=== PATIENT | male | born 1955 | race Hispanic/Latino ===

== ENCOUNTER 2019-05-05 19:56 | Inpatient (IN) | payer OTHER ==
[2019-05-05] MEDS ORDERED: SODIUM CHLORIDE 0.9% 250ML 250 ML IV ONE (20:36)
--- NOTE | 2019-05-05 20:41 | XRay Report ---
CHEST 1 VIEW 8:16 PM INDICATION / CLINICAL INFORMATION: Chest Pain. Difficulty breathing. COMPARISON: None available. FINDINGS: SUPPORT DEVICES: None. HEART / MEDIASTINUM: The heart size is normal. There is mild prominence of the central pulmonary vess els. LUNGS / PLEURA: There is moderate patchy interstitial disease throughout both lungs, more prominent i n the mid to lower lung zones and greater on the right. There is a minimal right pleural effusion. Th e lungs appear mildly hyperinflated. No pneumothorax. ADDITIONAL FINDINGS: No significant additional findings. IMPRESSION: Mild congestive heart failure superimposed on COPD. Signer Name: Braeden Shabazz MD Signed: 05/05/2019 8:36 PM Workstation Name: [id number]
[2019-05-05] MEDS ORDERED: ALBUTEROL 2.5 MG/3 ML NEBU IH ONE (20:42)
[2019-05-05] MEDS ORDERED: methylPREDNISolone Sod Succinate 125 MG/2 ML INJ IV ONE (20:42)
[2019-05-05] MEDS ORDERED: IPRATROPIUM 0.02% NEBU 2.5 ML IH ONE (20:42)
--- NOTE | 2019-05-05 20:44 | Emergency Department Report ---
ED General Adult HPI - General Chief complaint: Dyspnea/Respdistress Stated complaint: ALEXIS Time Seen by Provider: 05/05/19 20:25 Source: patient, EMS ( EMS documentation not available at time of chart dictation ), RN notes reviewed Mode of arrival: Stretcher Limitations: Physical Limitation - History of Present Illness Initial comments: This is a 64-year-old gentleman. This patient is not known to this provider previously. He typically follows at the [facility]. He has a history of hypertension, A. fib, on permanent anticoagulation, Coumadin, high cholesterol, arterial disease, history of aortic bypass, and iliac occlusion The patient presents to the ER today with a complaint of pain with shortness of breath. The symptoms started yesterday. They are constant. It was sort physical exertion. They decrease with rest. He endorses compliance with his Coumadin therapy. He checks his INR at home; recent INR is 4 as of last night. He held his Coumadin dose last night. He denies history of DVT that he is aware of, and he denies recent travel, surgery, immobilization, or flights. He has no physical pain at this time. His legs have chronic lower extremity swelling. He thinks that they're at their baseline. He was seen at an urgent care center recently, presumptively diagnosed with a sinus infection, prescribed oral outpatient antibiotics, although he states these are not improving. He thinks he is taking amoxicillin. -: Gradual, hour(s) (24-36) Consistency: constant Improves with: rest Worsens with: movement - Related Data Home Medications Medication Instructions Recorded Confirmed Last Taken Amoxicillin [Trimox CAP] 500 mg PO Q8H 05/05/19 05/05/19 Unknown Atenolol [Tenormin] 25 mg PO DAILY 05/05/19 05/05/19 Unknown AtorvaSTATin [Lipitor] 10 mg PO QHS 05/05/19 05/05/19 Unknown Benzonatate [Tessalon Perles] 100 mg PO Q8HR 05/05/19 05/05/19 Unknown Fluticasone [Flonase] 1 spray NS QDAY 05/05/19 05/05/19 Unknown Warfarin Sodium [Coumadin] 5 mg PO DAILY 05/05/19 05/05/19 Unknown hydrALAZINE [Apresoline TAB] 10 mg PO QHS 05/05/19 05/05/19 Unknown Allergies Allergy/AdvReac Type Severity Reaction Status Date / Time aspirin AdvReac Unknown Verified 05/05/19 20:10 ED Review of Systems ROS: Stated complaint: ALEXIS Other details as noted in HPI Constitutional: malaise ENT: congestion Respiratory: shortness of breath Cardiovascular: edema. denies: chest pain Gastrointestinal: denies: abdominal pain, nausea, vomiting, diarrhea, constipation, hematemesis, melena Genitourinary: denies: dysuria Musculoskeletal: denies: myalgia Skin: denies: lesions Neurological: weakness Psychiatric: anxiety ED Past Medical Hx - Past Medical History Previous Medical History?: Yes Hx Hypertension: Yes Additional medical history: AFIB; antiphospholipid syndrome; high cholesterol - Surgical History Past Surgical History?: Yes Additional Surgical History: aortic bypass; L. iliac arterial bypass; R. and L. femoral arterial bypass - Social History Smoking Status: Unknown if ever smoked - Medications Home Medications: Home Medications Medication Instructions Recorded Confirmed Last Taken Type Amoxicillin [Trimox CAP] 500 mg PO Q8H 05/05/19 05/05/19 Unknown History Atenolol [Tenormin] 25 mg PO DAILY 05/05/19 05/05/19 Unknown History AtorvaSTATin [Lipitor] 10 mg PO QHS 05/05/19 05/05/19 Unknown History Benzonatate [Tessalon Perles] 100 mg PO Q8HR 05/05/19 05/05/19 Unknown History Fluticasone [Flonase] 1 spray NS QDAY 05/05/19 05/05/19 Unknown History Warfarin Sodium [Coumadin] 5 mg PO DAILY 05/05/19 05/05/19 Unknown History hydrALAZINE [Apresoline TAB] 10 mg PO QHS 05/05/19 05/05/19 Unknown History ED Physical Exam - General Limitations: Physical Limitation General appearance: alert, anxious, in distress - Head Head exam: Present: atraumatic, normocephalic - Eye Eye exam: Present: normal appearance, EOMI. Absent: nystagmus - ENT ENT exam: Present: normal exam, normal orophraynx, mucous membranes moist, normal external ear exam - Neck Neck exam: Present: normal inspection, full ROM. Absent: tenderness, meningismus - Respiratory Respiratory exam: Present: respiratory distress, decreased breath sounds. Absent: wheezes, rales, rhonchi, stridor - Cardiovascular Cardiovascular Exam: Present: normal rhythm, tachycardia, normal heart sounds. Absent: systolic murmur, diastolic murmur, rubs, gallop - GI/Abdominal GI/Abdominal exam: Present: soft. Absent: distended, tenderness, guarding, rebound, rigid, pulsatile mass - Rectal Rectal exam: Present: deferred - Extremities Exam Extremities exam: Present: normal inspection, full ROM, pedal edema, other (2+ pulses noted in the bilateral upper, lower extremities. There is no long bone tenderness. Musculoskeletal compartments are soft. The pelvis is stable.). Absent: calf tenderness - Back Exam Back exam: Present: normal inspection, full ROM. Absent: tenderness, CVA tenderness (R), CVA tenderness (L), paraspinal tenderness, vertebral tenderness - Neurological Exam Neurological exam: Present: alert, oriented X3, other (there is no facial droop. The tongue is midline. Extraocular movements are intact bilaterally. Patient speaking in full complete sentences. Shoulder shrug is intact bilaterally. Hearing is grossly intact bilaterally. Visual acuity intact to finger counting and color perception at a close distance. 5/5 strength 4 extremities. Sensation intact to light touch in 4 extremities.). Absent: motor sensory deficit - Psychiatric Psychiatric exam: Present: anxious - Skin Skin exam: Present: warm, dry, intact, normal color. Absent: rash ED Course Vital Signs 05/05/19 05/05/19 05/05/19 20:02 20:52 20:54 Temperature 98.1 F Pulse Rate 81 77 Pulse Rate [ 75 Anterior] Respiratory 18 18 Rate Respiratory 18 Rate [Anterior] Blood Pressure 191/81 Blood Pressure 188/93 [Right] O2 Sat by Pulse 96 100 Oximetry 05/05/19 21:00 Temperature 98.1 F Pulse Rate 92 H Pulse Rate [ Anterior] Respiratory 20 Rate Respiratory Rate [Anterior] Blood Pressure Blood Pressure 178/94 [Right] O2 Sat by Pulse 94 Oximetry ED Medical Decision Making - Lab Data Result diagrams: 05/05/19 20:17 05/05/19 20:17 Vital Signs 05/05/19 05/05/19 05/05/19 20:02 20:52 20:54 Temperature 98.1 F Pulse Rate 81 77 Pulse Rate [ 75 Anterior] Respiratory 18 18 Rate Respiratory 18 Rate [Anterior] Blood Pressure 191/81 Blood Pressure 188/93 [Right] O2 Sat by Pulse 96 100 Oximetry 05/05/19 21:00 Temperature 98.1 F Pulse Rate 92 H Pulse Rate [ Anterior] Respiratory 20 Rate Respiratory Rate [Anterior] Blood Pressure Blood Pressure 178/94 [Right] O2 Sat by Pulse 94 Oximetry Lab Results 05/05/19 05/05/19 05/05/19 Range/Units 20:17 20:17 21:15 WBC 13.3 H (4.5-11.0) K/mm3 RBC 3.80 (3.65-5.03) M/mm3 Hgb 11.0 L (11.8-15.2) gm/dl Hct 34.0 L (35.5-45.6) % MCV 90 (84-94) fl MCH 29 (28-32) pg MCHC 32 (32-34) % RDW 16.2 H (13.2-15.2) % Plt Count 118 L (140-440) K/mm3 Lymph % (Auto) 11.4 L (13.4-35.0) % [place] % (Auto) 7.5 H (0.0-7.3) % Eos % (Auto) 0.3 (0.0-4.3) % Baso % (Auto) 0.6 (0.0-1.8) % Lymph # 1.5 (1.2-5.4) K/mm3 [place] # 1.0 H (0.0-0.8) K/mm3 Eos # 0.0 (0.0-0.4) K/mm3 Baso # 0.1 (0.0-0.1) K/mm3 Seg Neutrophils % 80.2 H (40.0-70.0) % Seg Neutrophils # 10.7 H (1.8-7.7) K/mm3 PT 29.2 H (12.2-14.9) Sec. INR 2.82 H (0.87-1.13) Sodium 140 (137-145) mmol/L Potassium 3.3 L (3.6-5.0) mmol/L Chloride 109.0 H (98-107) mmol/L Carbon Dioxide 19 L (22-30) mmol/L Anion Gap 15 mmol/L BUN 24 H (9-20) mg/dL Creatinine 0.9 (0.8-1.5) mg/dL Estimated GFR > 60 ml/min BUN/Creatinine Ratio 27 % Glucose 89 (75-100) mg/dL Calcium 8.2 L (8.4-10.2) mg/dL Troponin T < 0.010 (0.00-0.029) ng/mL - EKG Data -: EKG Interpreted by Me EKG shows normal: sinus rhythm Rate: normal - EKG Data When compared to previous EKG there are: previous EKG unavailable 05/05/19 21:47 There is no prior EKG available for comparison. This shows a sinus rhythm, 82 bpm, normal axis, QTC is within normal limits, there is poor R progression, there is motion artifact, this EKG is abnormal, this EKG is not consistent with ST elevation myocardial infarction. - Radiology Data Radiology results: report reviewed, image reviewed CHEST 1 VIEW 8:16 PM INDICATION / CLINICAL INFORMATION: Chest Pain. Difficulty breathing. COMPARISON: None available. FINDINGS: SUPPORT DEVICES: None. HEART / MEDIASTINUM: The heart size is normal. There is mild prominence of the central pulmonary vessels. LUNGS / PLEURA: There is moderate patchy interstitial disease throughout both lungs, more prominent in the mid to lower lung zones and greater on the right. There is a minimal right pleural effusion. The lungs appear mildly hyperinflated. No pneumothorax. ADDITIONAL FINDINGS: No significant additional findings. IMPRESSION: Mild congestive heart failure superimposed on COPD. Signer Name: Braeden Shabazz MD Signed: 05/05/2019 7:36 PM Workstation Name: [id number] - Medical Decision Making Differential diagnosis, including but not limited to: Pericardial effusion, pneumonia, congestive heart failure, COPD, pulmonary embolism, anemia Assessment and plan: 64-year-old gentleman with painless quiets shortness of breath. He is afebrile, initially tachycardic and hypertensive. On supplemental oxygen, he appears to be quite uncomfortable. INR therapeutic, denies DVT, pulmonary embolism risk factors. X-ray of the chest suggests emphys ematous changes, possible CHF versus infiltrate. Patient placed on BiPAP therapy, and this markedly improved his symptoms. He'll be treated empirically with albuterol, Atrovent, steroids, Lasix, and antibiotic therapy. Case is presented to the Hospital physician, Dr. Meraz, who has accepted the patient to the medical service. Critical Care Time: Yes Critical care time in (mins) excluding proc time.: 35 Critical care attestation.: If time is entered above; I have spent that time in minutes in the direct care of this critically ill patient, excluding procedure time. ED Disposition Clinical Impression: Acute dyspnea, Anticoagulated on Coumadin Disposition: OP ADMIT IP TO THIS HOSP Is pt being admited?: Yes Condition: Serious
[2019-05-05 20:45] LABS: Basophils # (Auto) 0.1 K/mm3 (0.0-0.1); Basophils % (Auto) 0.6 % (0.0-1.8); Eosinophils % (Auto) 0.3 % (0.0-4.3); Lymphocytes # (Auto) 1.5 K/mm3 (1.2-5.4); Lymphocytes % (Auto) 11.4 % (13.4-35.0); Mean Corpuscular HGB Conc 32 % (32-34); Mean Corpuscular Volume 90 fl (84-94); Monocytes % (Auto) 7.5 % (0.0-7.3); Platelet Count 118 K/mm3 (140-440); Red Cell Distribution Width 16.2 % (13.2-15.2)
[2019-05-05] MEDS ORDERED: MAGNESIUM SULFATE 2 GM/50 ML BAG IV ONE (20:50)
[2019-05-05 21:03] LABS: BUN/Creatinine Ratio 27; Blood Urea Nitrogen 24 mg/dL (9-20); Calcium 8.2 mg/dL (8.4-10.2); Hemolysis Index 6
[2019-05-05] MEDS ORDERED: SODIUM CHLORIDE 0.9% 1000 ML 1,000 ML ONE (21:03)
[2019-05-05 21:40] LABS: INR 2.82 (0.87-1.13)
[2019-05-05] MEDS ORDERED: FUROSEMIDE 20 MG/2 ML INJ IV ONE (21:43)
[2019-05-05 21:46] LABS: Partial Thromboplastin Time 70.9 Sec. (24.2-36.6)
[2019-05-05] MEDS ORDERED: ACETAMINOPHEN 325 MG TAB PO PRN (22:45)
[2019-05-05] MEDS ORDERED: ONDANSETRON 4 MG/2 ML INJ IV PRN (22:45)
[2019-05-05] MEDS ORDERED: hydrALAZINE 20 MG/1 ML INJ IV PRN (22:56)
[2019-05-05] MEDS: POTASSIUM CHLORIDE 10 MEQ 10 MEQ/100 ML BAG IV SCH (23:13)
[2019-05-06] MEDS ORDERED: IPRATROPIUM/ALBUTEROL SULFATE 3 ML AMPUL.NEB IH SCH
[2019-05-06] MEDS: POTASSIUM CHLORIDE 10 MEQ 10 MEQ/100 ML BAG IV SCH ×3 (01:01→04:54)
[2019-05-06] MEDS ORDERED: dilTIAZem 25 MG/5 ML INJ IV ONE (01:02)
[2019-05-06] MEDS ORDERED: LEVALBUTEROL 0.63 MG/3 ML NEBU IH PRN (01:02)
[2019-05-06] MEDS ORDERED: SODIUM CHLORIDE 0.9% 1000 ML 1,000 ML IV ONE (01:32)
--- NOTE | 2019-05-06 02:04 | History and Physical Report ---
History of Present Illness Date of examination: 05/05/19 Date of admission: 05/05/19 21:50 Chief complaint: Shortness of breath History of present illness: Patient is a 64 year old male with a history of COPD and paroxysmal atrial fibrillation who presented to the ED on account of a day history of worsening shortness of breath on mild exertion. He has associated bilateral ankle swelling, palpitation, cough productive of greenish sputum, orthopnea and PND. He denies chest pain, diaphoresis, fever, chills, headaches, nausea, vomiting, lightheadedness, syncope or loss of consciousness. No abdominal pain, constipation, diarrhea, dysuria or frequency. In the ED, patient was placed on BiPAP Past History Past Medical History: atrial fib (paroxysmal), COPD, hypertension, hyperlipidemia, PVD, other (antiphospholipid syndrome, aortic aneurysm) Past Surgical History: Other (aortic bypass; L. iliac arterial bypass; R. and L. femoral arterial bypass) Social history: other (patient is an ex-smoker. He has 30 yrs history of cigarette smoking but he quit 12 years ago. He denies alcohol or illicit drug use) Family history: hypertension (mother) Medications and Allergies Allergies Allergy/AdvReac Type Severity Reaction Status Date / Time aspirin AdvReac Unknown Verified 05/05/19 20:10 Home Medications Medication Instructions Recorded Confirmed Last Taken Type Amoxicillin [Trimox CAP] 500 mg PO Q8H 05/05/19 05/05/19 Unknown History Atenolol [Tenormin] 25 mg PO DAILY 05/05/19 05/05/19 Unknown History AtorvaSTATin [Lipitor] 10 mg PO QHS 05/05/19 05/05/19 Unknown History Benzonatate [Tessalon Perles] 100 mg PO Q8HR 05/05/19 05/05/19 Unknown History Fluticasone [Flonase] 1 spray NS QDAY 05/05/19 05/05/19 Unknown History Warfarin Sodium [Coumadin] 5 mg PO DAILY 05/05/19 05/05/19 Unknown History hydrALAZINE [Apresoline TAB] 10 mg PO QHS 05/05/19 05/05/19 Unknown History Active Meds: Active Medications Acetaminophen (Tylenol) 650 mg PO Q4H PRN PRN Reason: Pain MILD(1-3)/Fever >100.5/MELENDEZ Famotidine (Pepcid) 10 mg PO BID JESSIE Furosemide (Lasix) 40 mg IV QDAY JESSIE Hydralazine HCl (Apresoline) 10 mg IV Q4HR PRN PRN Reason: Blood Pressure Levofloxacin/Dextrose (Levaquin 750mg/150ml) 750 mg in 150 mls @ 100 mls/hr IV Q24HR JESSIE; Protocol Stop: 05/13/19 09:59 Sodium Chloride (Nacl 0.9% 1000 Ml) 1,000 mls @ 999 mls/hr IV BOLUS ONE Stop: 05/06/19 02:32 Diltiazem HCl (Cardizem/D5w 100mg/100ml) 100 mg in 100 mls @ 5 mls/hr IV DAILY JESSIE; Protocol Levalbuterol HCl (Xopenex) 0.63 mg IH Q8HRT PRN PRN Reason: Shortness Of Breath Methylprednisolone Sodium Succinate (Solu-Medrol) 125 mg IV Q8HR JESSIE Ondansetron HCl (Zofran) 4 mg IV Q8H PRN PRN Reason: Nausea And Vomiting Sodium Chloride (Sodium Chloride Flush Syringe 10 Ml) 10 ml IV BID JESSIE Sodium Chloride (Sodium Chloride Flush Syringe 10 Ml) 10 ml IV PRN PRN PRN Reason: LINE FLUSH Review of Systems All systems: negative (all other systems reviewed with the patient and are negative unless otherwise stated above) Exam - Constitutional Vitals: Temp Pulse Resp BP Pulse Ox 99.1 F 182 H 20 139/63 94 05/06/19 00:26 05/06/19 01:16 05/06/19 00:26 05/06/19 00:26 05/06/19 00:26 General appearance: Present: no acute distress, well-nourished - EENT Eyes: Present: PERRL, EOM intact ENT: hearing intact, clear oral mucosa - Neck Neck: Present: supple, normal ROM - Respiratory Respiratory effort: normal Respiratory: bilateral: CTA, diminished - Cardiovascular Rhythm: irregularly irregular Heart Sounds: Present: S1 & S2 - Extremities Extremity abnormal: edema (bilateral ankles) - Abdominal General gastrointestinal: Present: soft, non-tender, non-distended, normal bowel sounds Male genitourinary: Present: deferred - Rectal Rectal Exam: deferred - Integumentary Integumentary: Present: clear, warm, dry - Musculoskeletal Musculoskeletal: gait normal, strength equal bilaterally - Psychiatric Psychiatric: appropriate mood/affect, intact judgment & insight - Neurologic Neurologic: CNII-XII intact, moves all extremities Results - Labs CBC & Chem 7: 05/05/19 20:17 05/05/19 20:17 Labs: Laboratory Last Values WBC 13.3 K/mm3 (4.5-11.0) H 05/05/19 20:17 RBC 3.80 M/mm3 (3.65-5.03) 05/05/19 20:17 Hgb 11.0 gm/dl (11.8-15.2) L 05/05/19 20:17 Hct 34.0 % (35.5-45.6) L 05/05/19 20:17 MCV 90 fl (84-94) 05/05/19 20:17 MCH 29 pg (28-32) 05/05/19 20:17 MCHC 32 % (32-34) 05/05/19 20:17 RDW 16.2 % (13.2-15.2) H 05/05/19 20:17 Plt Count 118 K/mm3 (140-440) L 05/05/19 20:17 Lymph % (Auto) 11.4 % (13.4-35.0) L 05/05/19 20:17 [place] % (Auto) 7.5 % (0.0-7.3) H 05/05/19 20:17 Eos % (Auto) 0.3 % (0.0-4.3) 05/05/19 20:17 Baso % (Auto) 0.6 % (0.0-1.8) 05/05/19 20:17 Lymph # 1.5 K/mm3 (1.2-5.4) 05/05/19 20:17 [place] # 1.0 K/mm3 (0.0-0.8) H 05/05/19 20:17 Eos # 0.0 K/mm3 (0.0-0.4) 05/05/19 20:17 Baso # 0.1 K/mm3 (0.0-0.1) 05/05/19 20:17 Seg Neutrophils % 80.2 % (40.0-70.0) H 05/05/19 20:17 Seg Neutrophils # 10.7 K/mm3 (1.8-7.7) H 05/05/19 20:17 PT 29.2 Sec. (12.2-14.9) H 05/05/19 21:15 INR 2.82 (0.87-1.13) H 05/05/19 21:15 APTT 70.9 Sec. (24.2-36.6) H* 05/05/19 21:15 Sodium 140 mmol/L (137-145) 05/05/19 20:17 Potassium 3.3 mmol/L (3.6-5.0) L 05/05/19 20:17 Chloride 109.0 mmol/L (98-107) H 05/05/19 20:17 Carbon Dioxide 19 mmol/L (22-30) L 05/05/19 20:17 15 mmol/L 05/05/19 20:17 BUN 24 mg/dL (9-20) H 05/05/19 20:17 0.9 mg/dL (0.8-1.5) 05/05/19 20:17 Estimated GFR > 60 ml/min 05/05/19 20:17 27 % 05/05/19 20:17 Glucose 89 mg/dL (75-100) 05/05/19 20:17 Lactic Acid 1.30 mmol/L (0.7-2.0) 05/05/19 21:15 Calcium 8.2 mg/dL (8.4-10.2) L 05/05/19 20:17 Magnesium 2.60 mg/dL (1.7-2.3) H 05/05/19 21:15 108 units/L (55-170) 05/05/19 21:15 < 0.010 ng/mL (0.00-0.029) 05/05/19 22:53 NT-Pro-B Natriuret Pep 1532 pg/mL (0-900) H 05/05/19 21:15 Assessment and Plan Assessment and plan: Acute severe COPD exacerbation -Probably secondary to acute bronchitis -On IV steroids, neb tx and IV antibiotic Acute respiratory failure with hypoxia -Continue BiPAP Paroxysmal atrial fibrillation with RVR -IV Cardizem bolus given -Continue continuous IV Cardizem drip, will monitor heart rate New onset CHF with acute exacerbation -On IV diuretic/CHF protocol -Echocardiogram to assess EF and valvular function Hypertensive urgency -Bp expected to improve on IV Cardizem drip Leukocytosis -Probably secondary to acute bronchitis -We'll also do urinalysis -On IV antibiotic, we'll monitor level Chronic anticoagulation use -INR level therapeutic, will monitor Hypokalemia -on repletion, we'll monitor level Hyperlipidemia -Continue statin Disposition: Patient will be admitted to inpatient status with plan for discharge when medically stable Time spent: 40 minutes
[2019-05-06] MEDS ORDERED: dilTIAZem/D5W 100 MG/100 ML BAG IV SCH (03:00)
[2019-05-06 03:58] LABS: Hematocrit 32.1 % (35.5-45.6); Hemoglobin 10.8 gm/dl (11.8-15.2); Mean Corpuscular HGB Conc 34 % (32-34); Mean Corpuscular Volume 87 fl (84-94); Platelet Count 130 K/mm3 (140-440); Red Blood Count 3.69 M/mm3 (3.65-5.03); Red Cell Distribution Width 16.2 % (13.2-15.2)
[2019-05-06 04:08] LABS: INR 2.36 (0.87-1.13)
[2019-05-06 04:20] LABS: BUN/Creatinine Ratio 25; Blood Urea Nitrogen 20 mg/dL (9-20); Calcium 7.5 mg/dL (8.4-10.2); Hemolysis Index 17
[2019-05-06] MEDS: methylPREDNISolone Sod Succinate 125 MG/2 ML INJ IV SCH ×3 (04:54→21:35)
[2019-05-06 05:01] LABS: Basophils % (Manual) 0 % (0.0-1.8); Eosinophils % (Manual) 0 % (0.0-4.3); RBC Morphology Normal; Total Cells Counted 100
[2019-05-06 06:59] LABS: Bilirubin,Urine NEG (Negative); Blood,Urine SM (Negative); Color,Urine Straw (Yellow); Mucus,Urine FEW /HPF; Protein,Urine <15 mg/dL mg/dL (Negative); RBC,Urine < 1.0 /HPF (0.0-6.0); Urobilinogen,Urine < 2.0 mg/dL (<2.0)
[2019-05-06] MEDS: atenoloL 25 MG TAB PO SCH (09:15)
[2019-05-06] MEDS: FAMOTIDINE 10 MG TAB PO SCH ×2 (09:15→21:35)
[2019-05-06] MEDS: FUROSEMIDE 40 MG/4 ML INJ IV SCH (09:15)
--- NOTE | 2019-05-06 09:49 | Progress Note ---
Assessment and Plan Assessment and plan: --Paroxysmal atrial fibrillation with RVR And Cardizem drip, changed to sinus rhythm Continue current management, cardiology consulted --Acute severe COPD exacerbation Probably secondary to acute bronchitis On IV steroids, neb tx and IV antibiotic --Acute respiratory failure with hypoxia Continue oxygen and titrate O2 sats to more than 90% BiPAP as needed --New onset CHF with acute exacerbation On IV diuretic/CHF protocol Echocardiogram to assess EF and valvular function --Hypertensive urgency Bp expected to improve on IV Cardizem drip --Leukocytosis Probably secondary to acute bronchitis We'll also do urinalysis On IV antibiotic, we'll monitor level --Chronic anticoagulation use; History of aortic bypass and iliac occlusion; On chronic anticoagulation with Coumadin 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 Closely monitor INR levels ,adjust Coumadin dose -- Hypokalemia;Corrected --Hyperlipidemia; continue statin --DVT prophylaxis; the patient is on Coumadin Monitor closely and adjust management as needed Disposition; continue inpatient management Discharge home in medically stable History Interval history: Patient seen and examined medical records reviewed Patient feels slightly better no new complaints He is concerned that his INR is subtherapeutic Reports that his labor contractor wants his INR between 3-3.5 For some vascular reasons Vital signs noted Hospitalist Physical - Constitutional Vitals: Temp Pulse Resp BP Pulse Ox 98.2 F 74 20 115/54 93 05/06/19 03:19 05/06/19 03:19 05/06/19 07:15 05/06/19 03:19 05/06/19 03:19 General appearance: Present: no acute distress, well-nourished - EENT Eyes: Present: PERRL, EOM intact - Neck Neck: Present: supple, normal ROM - Respiratory Respiratory effort: normal Respiratory: bilateral: diminished, negative: rales, rhonchi, wheezing - Cardiovascular Rhythm: regular Heart Sounds: Present: S1 & S2 - Extremities Extremities: no ischemia, No edema - Abdominal General gastrointestinal: soft, non-tender, non-distended, normal bowel sounds - Integumentary Integumentary: Present: clear, warm - Psychiatric Psychiatric: appropriate mood/affect, cooperative - Neurologic Neurologic: CNII-XII intact, moves all extremities Results - Labs CBC & Chem 7: 05/06/19 03:36 05/06/19 03:36 Labs: Laboratory Last Values WBC 11.8 K/mm3 (4.5-11.0) H 05/06/19 03:36 RBC 3.69 M/mm3 (3.65-5.03) 05/06/19 03:36 Hgb 10.8 gm/dl (11.8-15.2) L 05/06/19 03:36 Hct 32.1 % (35.5-45.6) L 05/06/19 03:36 MCV 87 fl (84-94) 05/06/19 03:36 MCH 29 pg (28-32) 05/06/19 03:36 MCHC 34 % (32-34) 05/06/19 03:36 RDW 16.2 % (13.2-15.2) H 05/06/19 03:36 Plt Count 130 K/mm3 (140-440) L 05/06/19 03:36 Lymph % (Auto) 11.4 % (13.4-35.0) L 05/05/19 20:17 Mower % (Auto) 7.5 % (0.0-7.3) H 05/05/19 20:17 Eos % (Auto) 0.3 % (0.0-4.3) 05/05/19 20:17 Baso % (Auto) 0.6 % (0.0-1.8) 05/05/19 20:17 Lymph # 1.5 K/mm3 (1.2-5.4) 05/05/19 20:17 [place] # 1.0 K/mm3 (0.0-0.8) H 05/05/19 20:17 Eos # 0.0 K/mm3 (0.0-0.4) 05/05/19 20:17 Baso # 0.1 K/mm3 (0.0-0.1) 05/05/19 20:17 Add Manual Diff Complete 05/06/19 03:36 Total Counted 100 05/06/19 03:36 Seg Neutrophils % Award Clerk 05/06/19 03:36 Seg Neuts % (Manual) 91.0 % (40.0-70.0) H 05/06/19 03:36 0 % 05/06/19 03:36 6.0 % (13.4-35.0) L 05/06/19 03:36 Reactive Lymphs % (Man) 0 % 05/06/19 03:36 3.0 % (0.0-7.3) 05/06/19 03:36 0 % (0.0-4.3) 05/06/19 03:36 0 % (0.0-1.8) 05/06/19 03:36 0 % 05/06/19 03:36 0 % 05/06/19 03:36 0 % 05/06/19 03:36 0 % 05/06/19 03:36 Nucleated RBC % Not Reportable 05/06/19 03:36 Seg Neutrophils # 10.7 K/mm3 (1.8-7.7) H 05/05/19 20:17 Seg Neutrophils # Man 10.7 K/mm3 (1.8-7.7) H 05/06/19 03:36 Band Neutrophils # 0.0 K/mm3 05/06/19 03:36 0.7 K/mm3 (1.2-5.4) L 05/06/19 03:36 Abs React Lymphs (Man) 0.0 K/mm3 05/06/19 03:36 0.4 K/mm3 (0.0-0.8) 05/06/19 03:36 0.0 K/mm3 (0.0-0.4) 05/06/19 03:36 0.0 K/mm3 (0.0-0.1) 05/06/19 03:36 0.0 K/mm3 05/06/19 03:36 0.0 K/mm3 05/06/19 03:36 0.0 K/mm3 05/06/19 03:36 Blast Cells # 0.0 K/mm3 05/06/19 03:36 WBC Morphology Not Reportable 05/06/19 03:36 Hypersegmented Neuts Not Reportable 05/06/19 03:36 Hyposegmented Neuts Not Reportable 05/06/19 03:36 Hypogranular Neuts Not Reportable 05/06/19 03:36 Not Reportable 05/06/19 03:36 Not Reportable 05/06/19 03:36 Not Reportable 05/06/19 03:36 Not Reportable 05/06/19 03:36 Not Reportable 05/06/19 03:36 Not Reportable 05/06/19 03:36 Not Reportable 05/06/19 03:36 Not Reportable 05/06/19 03:36 Plt Clumps, EDTA Not Reportable 05/06/19 03:36 Not Reportable 05/06/19 03:36 Not Reportable 05/06/19 03:36 Not Reportable 05/06/19 03:36 Plt Morphology Comment Not Reportable 05/06/19 03:36 RBC Morphology Normal 05/06/19 03:36 Dimorphic RBCs Not Reportable 05/06/19 03:36 Not Reportable 05/06/19 03:36 Not Reportable 05/06/19 03:36 Not Reportable 05/06/19 03:36 Not Reportable 05/06/19 03:36 Not Reportable 05/06/19 03:36 Not Reportable 05/06/19 03:36 Not Reportable 05/06/19 03:36 Not Reportable 05/06/19 03:36 Not Reportable 05/06/19 03:36 Not Reportable 05/06/19 03:36 Not Reportable 05/06/19 03:36 Not Reportable 05/06/19 03:36 Not Reportable 05/06/19 03:36 Not Reportable 05/06/19 03:36 Not Reportable 05/06/19 03:36 Not Reportable 05/06/19 03:36 Not Reportable 05/06/19 03:36 Not Reportable 05/06/19 03:36 Not Reportable 05/06/19 03:36 Acanthocytes (Spur) Not Reportable 05/06/19 03:36 Rouleaux Not Reportable 05/06/19 03:36 Not Reportable 05/06/19 03:36 Not Reportable 05/06/19 03:36 Not Reportable 05/06/19 03:36 Not Reportable 05/06/19 03:36 Hem Pathologist Commnt No 05/06/19 03:36 PT 25.4 Sec. (12.2-14.9) H 05/06/19 03:36 INR 2.36 (0.87-1.13) H 05/06/19 03:36 APTT 70.9 Sec. (24.2-36.6) H* 05/05/19 21:15 Sodium 141 mmol/L (137-145) 05/06/19 03:36 Potassium 3.6 mmol/L (3.6-5.0) 05/06/19 03:36 Chloride 108.6 mmol/L (98-107) H 05/06/19 03:36 Carbon Dioxide 19 mmol/L (22-30) L 05/06/19 03:36 17 mmol/L 05/06/19 03:36 BUN 20 mg/dL (9-20) 05/06/19 03:36 0.8 mg/dL (0.8-1.5) 05/06/19 03:36 Estimated GFR > 60 ml/min 05/06/19 03:36 25 % 05/06/19 03:36 Glucose 141 mg/dL (75-100) H 05/06/19 03:36 Lactic Acid 1.30 mmol/L (0.7-2.0) 05/05/19 21:15 Calcium 7.5 mg/dL (8.4-10.2) L 05/06/19 03:36 Magnesium 2.60 mg/dL (1.7-2.3) H 05/05/19 21:15 108 units/L (55-170) 05/05/19 21:15 < 0.010 ng/mL (0.00-0.029) 05/06/19 03:36 NT-Pro-B Natriuret Pep 1532 pg/mL (0-900) H 05/05/19 21:15 Straw (Yellow) 05/06/19 Unknown Clear (Clear) 05/06/19 Unknown 5.0 (5.0-7.0) 05/06/19 Unknown Ur Specific [place] 1.011 (1.003-1.030) 05/06/19 Unknown <15 mg/dl mg/dL (Negative) 05/06/19 Unknown Neg mg/dL (Negative) 05/06/19 Unknown Neg mg/dL (Negative) 05/06/19 Unknown Sm (Negative) 05/06/19 Unknown Neg (Negative) 05/06/19 Unknown Neg (Negative) 05/06/19 Unknown < 2.0 mg/dL (<2.0) 05/06/19 Unknown Ur Leukocyte Esterase Neg (Negative) 05/06/19 Unknown 1.0 /HPF (0.0-6.0) 05/06/19 Unknown < 1.0 /HPF (0.0-6.0) 05/06/19 Unknown Few /HPF 05/06/19 Unknown Active Medications - Current Medications Current Medications: Generic Name Dose Route Start Last Admin Trade Name Freq PRN Reason Stop Dose Admin Acetaminophen 650 mg 05/05/19 22:45 Tylenol PO Q4H PRN Pain MILD(1-3)/Fever >100.5/MELENDEZ Atenolol 25 mg 05/06/19 10:00 05/06/19 09:15 Tenormin PO 25 mg DAILY JESSIE Administration Atorvastatin Calcium 10 mg 05/06/19 22:00 Lipitor PO QHS JESSIE Famotidine 10 mg 05/06/19 10:00 05/06/19 09:15 Pepcid PO 10 mg BID JESSIE Administration Furosemide 40 mg 05/06/19 10:00 05/06/19 09:15 Lasix IV 40 mg QDAY JESSIE Administration Hydralazine HCl 10 mg 05/05/19 22:56 Apresoline IV Q4HR PRN Blood Pressure Levofloxacin/Dextrose 750 mg in 150 mls @ 100 mls/hr 05/06/19 10:00 05/06/19 09:16 Levaquin 750mg/150ml IV 05/13/19 09:59 100 mls/hr Q24HR JESSIE Administration Protocol Diltiazem HCl 100 mg in 100 mls @ 5 mls/hr 05/06/19 03:00 Cardizem/D5w 100mg/100ml IV TITR JESSIE Protocol 5 MG/HR Levalbuterol HCl 0.63 mg 05/06/19 01:02 Xopenex IH Q8HRT PRN Shortness Of Breath Methylprednisolone Sodium Succinate 125 mg 05/06/19 05:00 05/06/19 04:54 Solu-Medrol IV 125 mg Q8HR JESSIE Administration Ondansetron HCl 4 mg 05/05/19 22:45 Zofran IV Q8H PRN Nausea And Vomiting Sodium Chloride 10 ml 05/06/19 10:00 05/06/19 09:17 Sodium Chloride Flush Syringe 10 Ml IV 10 ml BID JESSIE Administration Sodium Chloride 10 ml 05/05/19 22:45 Sodium Chloride Flush Syringe 10 Ml IV PRN PRN LINE FLUSH Warfarin Sodium 5 mg 05/06/19 17:00 Coumadin PO SuMoTuThFr@1700 [facility] Protocol Warfarin Sodium 2.5 mg 10/02/19 17:00 Coumadin PO WeSa@1700 [facility] Protocol
[2019-05-06] MEDS ORDERED: WARFARIN 5 MG TAB PO SCH (17:00)
--- NOTE | 2019-05-06 17:14 | Consultation ---
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 His usual care has been at [facility], stating that he is in the process of relocating to the [facility]. In the past several years he has had endovascular grafting of the abdominal aorta, and a femoral to femoral bypass surgery procedure. Through all this, he reports no history of coronary artery disease, and no prior coronary invasive procedure or intervention. He presents to the hospital at this time with acute shortness of breath, in the emergency room he was found with rapid atrial fibrillation, started on initial therapy and quickly reverted to sinus rhythm. The sinus EKG does show some nonspecific ST segment abnormality in the anterolateral leads. Also significantly, his chest x-ray shows bilateral interstitial infiltrates, possibly pulmonary edema. Echocardiogram however shows well-preserved left ventricular systolic function with ejection fraction 55-60%, no significant valvular abnormalities. Past History Past Medical History: atrial fib (paroxysmal), COPD, hypertension, hyperlipidemia, PVD, other (antiphospholipid syndrome, aortic aneurysm) Past Surgical History: Other (aortic bypass; L. iliac arterial bypass; R. and L. femoral arterial bypass) Social history: other (patient is an ex-smoker. He has 30 yrs history of cigarette smoking but he quit 12 years ago. He denies alcohol or illicit drug use) Family history: hypertension (mother) Medications and Allergies Allergies Allergy/AdvReac Type Severity Reaction Status Date / Time aspirin AdvReac Unknown Verified 05/05/19 20:10 Home Medications Medication Instructions Recorded Confirmed Last Taken Type Amoxicillin [Trimox CAP] 500 mg PO Q8H 05/05/19 05/05/19 Unknown History Atenolol [Tenormin] 25 mg PO DAILY 05/05/19 05/05/19 Unknown History AtorvaSTATin [Lipitor] 10 mg PO QHS 05/05/19 05/05/19 Unknown History Benzonatate [Tessalon Perles] 100 mg PO Q8HR 05/05/19 05/05/19 Unknown History Fluticasone [Flonase] 1 spray NS QDAY 05/05/19 05/05/19 Unknown History Warfarin Sodium [Coumadin] 5 mg PO DAILY 05/05/19 05/05/19 Unknown History hydrALAZINE [Apresoline TAB] 10 mg PO QHS 05/05/19 05/05/19 Unknown History Active Meds: Active Medications Acetaminophen (Tylenol) 650 mg PO Q4H PRN PRN Reason: Pain MILD(1-3)/Fever >100.5/MELENDEZ Atenolol (Tenormin) 25 mg PO DAILY [facility] Last Admin: 05/06/19 09:15 Dose: 25 mg Documented by: Atorvastatin Calcium (Lipitor) 10 mg PO QHS [facility] Famotidine (Pepcid) 10 mg PO BID [facility] Last Admin: 05/06/19 09:15 Dose: 10 mg Documented by: Furosemide (Lasix) 40 mg IV QDAY [facility] Last Admin: 05/06/19 09:15 Dose: 40 mg Documented by: Hydralazine HCl (Apresoline) 10 mg IV Q4HR PRN PRN Reason: Blood Pressure Levofloxacin/Dextrose (Levaquin 750mg/150ml) 750 mg in 150 mls @ 100 mls/hr IV Q24HR [facility]; Protocol Stop: 05/13/19 09:59 Last Admin: 05/06/19 09:16 Dose: 100 mls/hr Documented by: Diltiazem HCl (Cardizem/D5w 100mg/100ml) 100 mg in 100 mls @ 5 mls/hr IV TITR [facility]; Protocol Levalbuterol HCl (Xopenex) 0.63 mg IH Q8HRT PRN PRN Reason: Shortness Of Breath Methylprednisolone Sodium Succinate (Solu-Medrol) 125 mg IV Q8HR [facility] Last Admin: 05/06/19 14:06 Dose: 125 mg Documented by: Ondansetron HCl (Zofran) 4 mg IV Q8H PRN PRN Reason: Nausea And Vomiting Sodium Chloride (Sodium Chloride Flush Syringe 10 Ml) 10 ml IV BID [facility] Last Admin: 05/06/19 09:17 Dose: 10 ml Documented by: Sodium Chloride (Sodium Chloride Flush Syringe 10 Ml) 10 ml IV PRN PRN PRN Reason: LINE FLUSH Warfarin Sodium (Coumadin) 5 mg PO SuMoTuThFr@1700 [facility]; Protocol Last Admin: 05/06/19 16:35 Dose: Not Given Documented by: Warfarin Sodium (Coumadin) 2.5 mg PO WeSa@1700 [facility]; Protocol Review of Systems Cardiovascular: chest pain, palpitations, rapid/irregular heart beat, lighthea dedness, shortness of breath, no orthopnea, no edema, no syncope Physical Examination Vital Signs Temp Pulse Resp BP Pulse Ox 98.1 F 81 18 188/93 90 05/05/19 20:02 05/05/19 20:02 05/05/19 20:02 05/05/19 20:02 05/05/19 20:02 General appearance: no acute distress HEENT: Positive: PERRL Neck: Positive: neck supple Cardiac: Positive: Reg Rate and Rhythm Lungs: Positive: Decreased Breath Sounds Neuro: Positive: Grossly Intact Abdomen: Positive: Soft Male genitourinary: Positive: deferred Skin: Positive: Clear Extremities: Absent: edema Results 05/06/19 03:36 05/07/19 04:00 Coagulation 05/05/19 05/06/19 Range/Units 21:15 03:36 PT 29.2 H 25.4 H (12.2-14.9) Sec. INR 2.82 H 2.36 H (0.87-1.13) APTT 70.9 H* (24.2-36.6) Sec. CBC 05/05/19 05/06/19 Range/Units 20:17 03:36 WBC 13.3 H 11.8 H (4.5-11.0) K/mm3 RBC 3.80 3.69 (3.65-5.03) M/mm3 Hgb 11.0 L 10.8 L (11.8-15.2) gm/dl Hct 34.0 L 32.1 L (35.5-45.6) % Plt Count 118 L 130 L (140-440) K/mm3 Lymph # 1.5 (1.2-5.4) K/mm3 [place] # 1.0 H (0.0-0.8) K/mm3 Eos # 0.0 (0.0-0.4) K/mm3 Baso # 0.1 (0.0-0.1) K/mm3 Comprehensive Metabolic Panel 05/05/19 05/06/19 Range/Units 20:17 03:36 Sodium 140 141 (137-145) mmol/L Potassium 3.3 L 3.6 (3.6-5.0) mmol/L Chloride 109.0 H 108.6 H (98-107) mmol/L Carbon Dioxide 19 L 19 L (22-30) mmol/L BUN 24 H 20 (9-20) mg/dL Creatinine 0.9 0.8 (0.8-1.5) mg/dL Glucose 89 141 H (75-100) mg/dL Calcium 8.2 L 7.5 L (8.4-10.2) mg/dL EKG interpretations - Telemetry EKG Rhythm: Atrial Fibrillation Assessment and Plan - Patient Problems (1) Acute congestive heart failure Current Visit: Yes Status: Acute Plan to address problem: Patient presented with symptoms and chest x-ray findings consistent with acute CHF. Echocardiogram shows normal left ventricle systolic function. Due to his long history of peripheral arterial disease, he may need aggressive workup for coronary disease as possible etiology of acute CHF. We will hold Coumadin therapy pending further invasive cardiac assessment. (2) Paroxysmal atrial fibrillation Current Visit: Yes Status: Acute Plan to address problem: Patient has paroxysmal atrial fibrillation, we'll continue medical therapy as directed and following discharge she will be continued on long-term warfarin therapy as current.
[2019-05-07] MEDS: methylPREDNISolone Sod Succinate 125 MG/2 ML INJ IV SCH ×2 (06:05→14:25)
[2019-05-07 06:46] LABS: INR 2.11 (0.87-1.13)
[2019-05-07 06:46] LABS: BUN/Creatinine Ratio 35; Blood Urea Nitrogen 28 mg/dL (9-20); Hemolysis Index 0
[2019-05-07] MEDS: atenoloL 25 MG TAB PO SCH (09:32)
[2019-05-07] MEDS: FAMOTIDINE 10 MG TAB PO SCH ×2 (09:34→21:28)
[2019-05-07] MEDS: FUROSEMIDE 40 MG/4 ML INJ IV SCH (09:34)
[2019-05-07] MEDS ORDERED: PNEUMOCOCCAL 23 Valent 0.5 ML VIAL IM ONE ×2 (12:00→14:30)
--- NOTE | 2019-05-07 13:35 | Progress Note ---
Assessment and Plan Assessment and plan: --Paroxysmal atrial fibrillation with RVR s/p Cardizem drip, now sinus rhythm Continue beta blockers, Coumadin was stopped Full cardiac workup, cardiology following --Acute severe COPD exacerbation Probably secondary to acute bronchitis On IV steroids, neb tx and IV antibiotic --Acute hypoxic respiratory failure Continue oxygen and titrate O2 sats to more than 90% BiPAP as needed, secondary to COPD exacerbation --New onset 2 to diastolic CHF On IV diuretic/CHF protocol Echocardiogram to assess EF 55% --Hypertensive urgency Bp expected to improve on IV Cardizem drip --Leukocytosis; probably due to acute bronchitis Empiric antibiotics, supportive care --Chronic anticoagulation use; Coumadin is held by cardiology For possible cardiac procedure -- Hypokalemia;Corrected --Hyperlipidemia; continue statin --DVT prophylaxis; the patient is on Coumadin Monitor closely and adjust management as needed Disposition; continue inpatient management Discharge home in medically stable History Interval history: Patient seen and examined medical records The patient feels slightly better no new complaints Vital signs noted Hospitalist Physical - Constitutional Vitals: Temp Pulse Resp BP Pulse Ox 98.0 F 62 18 141/57 98 05/07/19 12:00 05/07/19 12:00 05/07/19 12:00 05/07/19 12:00 05/07/19 12:00 General appearance: Present: no acute distress, well-nourished - EENT Eyes: Present: PERRL, EOM intact - Neck Neck: Present: supple, normal ROM - Respiratory Respiratory effort: normal Respiratory: bilateral: diminished, negative: rales, rhonchi, wheezing - Cardiovascular Rhythm: regular Heart Sounds: Present: S1 & S2 - Extremities Extremities: no ischemia, No edema - Abdominal General gastrointestinal: soft, non-tender, non-distended, normal bowel sounds - Integumentary Integumentary: Present: clear, warm - Psychiatric Psychiatric: appropriate mood/affect, cooperative - Neurologic Neurologic: CNII-XII intact, moves all extremities Results - Labs CBC & Chem 7: 05/06/19 03:36 05/07/19 04:00 Labs: Laboratory Last Values WBC 11.8 K/mm3 (4.5-11.0) H 05/06/19 03:36 RBC 3.69 M/mm3 (3.65-5.03) 05/06/19 03:36 Hgb 10.8 gm/dl (11.8-15.2) L 05/06/19 03:36 Hct 32.1 % (35.5-45.6) L 05/06/19 03:36 MCV 87 fl (84-94) 05/06/19 03:36 MCH 29 pg (28-32) 05/06/19 03:36 MCHC 34 % (32-34) 05/06/19 03:36 RDW 16.2 % (13.2-15.2) H 05/06/19 03:36 Plt Count 130 K/mm3 (140-440) L 05/06/19 03:36 Lymph % (Auto) 11.4 % (13.4-35.0) L 05/05/19 20:17 [place] % (Auto) 7.5 % (0.0-7.3) H 05/05/19 20:17 Eos % (Auto) 0.3 % (0.0-4.3) 05/05/19 20:17 Baso % (Auto) 0.6 % (0.0-1.8) 05/05/19 20:17 Lymph # 1.5 K/mm3 (1.2-5.4) 05/05/19 20:17 [place] # 1.0 K/mm3 (0.0-0.8) H 05/05/19 20:17 Eos # 0.0 K/mm3 (0.0-0.4) 05/05/19 20:17 Baso # 0.1 K/mm3 (0.0-0.1) 05/05/19 20:17 Add Manual Diff Complete 05/06/19 03:36 Total Counted 100 05/06/19 03:36 Seg Neutrophils % Special Diet Cook 05/06/19 03:36 Seg Neuts % (Manual) 91.0 % (40.0-70.0) H 05/06/19 03:36 Band Neutrophils % 0 % 05/06/19 03:36 Lymphocytes % (Manual) 6.0 % (13.4-35.0) L 05/06/19 03:36 Reactive Lymphs % (Man) 0 % 05/06/19 03:36 Monocytes % (Manual) 3.0 % (0.0-7.3) 05/06/19 03:36 Eosinophils % (Manual) 0 % (0.0-4.3) 05/06/19 03:36 Basophils % (Manual) 0 % (0.0-1.8) 05/06/19 03:36 Metamyelocytes % 0 % 05/06/19 03:36 Myelocytes % 0 % 05/06/19 03:36 Promyelocytes % 0 % 05/06/19 03:36 Blast Cells % 0 % 05/06/19 03:36 Nucleated RBC % Not Reportable 05/06/19 03:36 Seg Neutrophils # 10.7 K/mm3 (1.8-7.7) H 05/05/19 20:17 Seg Neutrophils # Man 10.7 K/mm3 (1.8-7.7) H 05/06/19 03:36 Band Neutrophils # 0.0 K/mm3 05/06/19 03:36 Lymphocytes # (Manual) 0.7 K/mm3 (1.2-5.4) L 05/06/19 03:36 Abs React Lymphs (Man) 0.0 K/mm3 05/06/19 03:36 Monocytes # (Manual) 0.4 K/mm3 (0.0-0.8) 05/06/19 03:36 Eosinophils # (Manual) 0.0 K/mm3 (0.0-0.4) 05/06/19 03:36 Basophils # (Manual) 0.0 K/mm3 (0.0-0.1) 05/06/19 03:36 Metamyelocytes # 0.0 K/mm3 05/06/19 03:36 Myelocytes # 0.0 K/mm3 05/06/19 03:36 Promyelocytes # 0.0 K/mm3 05/06/19 03:36 Blast Cells # 0.0 K/mm3 05/06/19 03:36 WBC Morphology Not Reportable 05/06/19 03:36 Hypersegmented Neuts Not Reportable 05/06/19 03:36 Hyposegmented Neuts Not Reportable 05/06/19 03:36 Hypogranular Neuts Not Reportable 05/06/19 03:36 Smudge Cells Not Reportable 05/06/19 03:36 Toxic Granulation Not Reportable 05/06/19 03:36 Toxic Vacuolation Not Reportable 05/06/19 03:36 Dohle Bodies Not Reportable 05/06/19 03:36 Pelger-Huet Anomaly Not Reportable 05/06/19 03:36 Tamy Rods Not Reportable 05/06/19 03:36 Platelet Estimate Not Reportable 05/06/19 03:36 Clumped Platelets Not Reportable 05/06/19 03:36 Plt Clumps, EDTA Not Reportable 05/06/19 03:36 Large Platelets Not Reportable 05/06/19 03:36 Giant Platelets Not Reportable 05/06/19 03:36 Platelet Satelliting Not Reportable 05/06/19 03:36 Plt Morphology Comment Not Reportable 05/06/19 03:36 RBC Morphology Normal 05/06/19 03:36 Dimorphic RBCs Not Reportable 05/06/19 03:36 Polychromasia Not Reportable 05/06/19 03:36 Hypochromasia Not Reportable 05/06/19 03:36 Poikilocytosis Not Reportable 05/06/19 03:36 Anisocytosis Not Reportable 05/06/19 03:36 Microcytosis Not Reportable 05/06/19 03:36 Macrocytosis Not Reportable 05/06/19 03:36 Spherocytes Not Reportable 05/06/19 03:36 Pappenheimer Bodies Not Reportable 05/06/19 03:36 Sickle Cells Not Reportable 05/06/19 03:36 Target Cells Not Reportable 05/06/19 03:36 Tear Drop Cells Not Reportable 05/06/19 03:36 Ovalocytes Not Reportable 05/06/19 03:36 Helmet Cells Not Reportable 05/06/19 03:36 Azul-Ivalee Bodies Not Reportable 05/06/19 03:36 [place] Rings Not Reportable 05/06/19 03:36 Sadie Cells Not Reportable 05/06/19 03:36 Bite Cells Not Reportable 05/06/19 03:36 Crenated Cell Not Reportable 05/06/19 03:36 Elliptocytes Not Reportable 05/06/19 03:36 Acanthocytes (Spur) Not Reportable 05/06/19 03:36 Rouleaux Not Reportable 05/06/19 03:36 Hemoglobin C Crystals Not Reportable 05/06/19 03:36 Schistocytes Not Reportable 05/06/19 03:36 Malaria parasites Not Reportable 05/06/19 03:36 [place] Bodies Not Reportable 05/06/19 03:36 Hem Pathologist Commnt No 05/06/19 03:36 PT 23.2 Sec. (12.2-14.9) H 05/07/19 Unknown INR 2.11 (0.87-1.13) H 05/07/19 Unknown APTT 70.9 Sec. (24.2-36.6) H* 05/05/19 21:15 Sodium 141 mmol/L (137-145) 05/07/19 04:00 Potassium 3.6 mmol/L (3.6-5.0) 05/07/19 04:00 Chloride 104.2 mmol/L (98-107) 05/07/19 04:00 Carbon Dioxide 23 mmol/L (22-30) 05/07/19 04:00 Anion Gap 17 mmol/L 05/07/19 04:00 BUN 28 mg/dL (9-20) H 05/07/19 04:00 Creatinine 0.8 mg/dL (0.8-1.5) 05/07/19 04:00 Estimated GFR > 60 ml/min 05/07/19 04:00 BUN/Creatinine Ratio 35 % 05/07/19 04:00 Glucose 142 mg/dL (75-100) H 05/07/19 04:00 Lactic Acid 1.30 mmol/L (0.7-2.0) 05/05/19 21:15 Calcium 8.0 mg/dL (8.4-10.2) L 05/07/19 04:00 Magnesium 2.60 mg/dL (1.7-2.3) H 05/05/19 21:15 Total Creatine Kinase 108 units/L (55-170) 05/05/19 21:15 Troponin T < 0.010 ng/mL (0.00-0.029) 05/06/19 03:36 NT-Pro-B Natriuret Pep 1532 pg/mL (0-900) H 05/05/19 21:15 Urine Color Straw (Yellow) 05/06/19 Unknown Urine Turbidity Clear (Clear) 05/06/19 Unknown Urine pH 5.0 (5.0-7.0) 05/06/19 Unknown Ur Specific [place] 1.011 (1.003-1.030) 05/06/19 Unknown Urine Protein <15 mg/dl mg/dL (Negative) 05/06/19 Unknown Urine Glucose (UA) Neg mg/dL (Negative) 05/06/19 Unknown Urine Ketones Neg mg/dL (Negative) 05/06/19 Unknown Urine Blood Sm (Negative) 05/06/19 Unknown Urine Nitrite Neg (Negative) 05/06/19 Unknown Urine Bilirubin Neg (Negative) 05/06/19 Unknown Urine Urobilinogen < 2.0 mg/dL (<2.0) 05/06/19 Unknown Ur Leukocyte Esterase Neg (Negative) 05/06/19 Unknown Urine WBC (Auto) 1.0 /HPF (0.0-6.0) 05/06/19 Unknown Urine RBC (Auto) < 1.0 /HPF (0.0-6.0) 05/06/19 Unknown Urine Mucus Few /HPF 05/06/19 Unknown Active Medications - Current Medications Current Medications: Generic Name Dose Route Start Last Admin Trade Name Freq PRN Reason Stop Dose Admin Acetaminophen 650 mg 05/05/19 22:45 Tylenol PO Q4H PRN Pain MILD(1-3)/Fever >100.5/MELENDEZ Atenolol 25 mg 05/06/19 10:00 05/07/19 09:32 Tenormin PO 25 mg DAILY JESSIE Administration Atorvastatin Calcium 10 mg 05/06/19 22:00 05/06/19 21:35 Lipitor PO 10 mg QHS JESSIE Administration Famotidine 10 mg 05/06/19 10:00 05/07/19 09:34 Pepcid PO 10 mg BID JESSIE Administration Furosemide 40 mg 05/06/19 10:00 05/07/19 09:34 Lasix IV 40 mg QDAY JESSIE Administration Hydralazine HCl 10 mg 05/05/19 22:56 Apresoline IV Q4HR PRN Blood Pressure Levofloxacin/Dextrose 750 mg in 150 mls @ 100 mls/hr 05/06/19 10:00 05/07/19 09:31 Levaquin 750mg/150ml IV 05/13/19 09:59 100 mls/hr Q24HR JESSIE Administration Protocol Diltiazem HCl 100 mg in 100 mls @ 5 mls/hr 05/06/19 03:00 Cardizem/D5w 100mg/100ml IV TITR JESSIE Protocol 5 MG/HR Levalbuterol HCl 0.63 mg 05/06/19 01:02 Xopenex IH Q8HRT PRN Shortness Of Breath Methylprednisolone Sodium Succinate 80 mg 05/06/19 22:00 05/07/19 06:05 Solu-Medrol IV 80 mg Q8HR JESSIE Administration Ondansetron HCl 4 mg 05/05/19 22:45 Zofran IV Q8H PRN Nausea And Vomiting Sodium Chloride 10 ml 05/06/19 10:00 05/07/19 09:34 Sodium Chloride Flush Syringe 10 Ml IV 10 ml BID JESSIE Administration Sodium Chloride 10 ml 05/05/19 22:45 Sodium Chloride Flush Syringe 10 Ml IV PRN PRN LINE FLUSH Warfarin Sodium 5 mg 05/06/19 17:00 05/06/19 16:35 Coumadin PO Not Given [id number]@1700 [facility] Protocol Warfarin Sodium 2.5 mg 05/09/19 17:00 Coumadin PO WeSa@1700 [facility] Protocol
--- NOTE | 2019-05-07 13:38 | Progress Note ---
Assessment and Plan - Patient Problems (1) Acute congestive heart failure Current Visit: Yes Status: Acute Plan to address problem: Patient presented with symptoms and chest x-ray findings consistent with acute CHF. Echocardiogram shows normal left ventricle systolic function. Due to his long history of peripheral arterial disease, he may need aggressive workup for coronary disease as possible etiology of acute CHF. We will hold Coumadin therapy pending further invasive cardiac assessment. (2) Paroxysmal atrial fibrillation Current Visit: Yes Status: Acute Plan to address problem: Patient has paroxysmal atrial fibrillation, we'll continue medical therapy as directed and following discharge she will be continued on long-term warfarin therapy as current. Subjective Date of service: 05/07/19 Interval history: Patient is comfortable, no acute distress. Objective Vital Signs Temp Pulse Pulse Pulse Pulse Resp BP 05/07/19 12:00 98.0 F 62 18 05/07/19 10:00 62 62 62 18 05/07/19 09:32 75 135/70 05/07/19 09:13 05/07/19 08:20 97.5 F L 64 18 142/62 05/07/19 03:43 97.6 F 59 L 20 130/62 05/06/19 23:30 98.1 F 63 20 131/59 05/06/19 20:52 05/06/19 20:45 68 05/06/19 19:53 97.8 F 68 20 129/53 05/06/19 16:22 97.4 F L 18 142/62 BP Pulse Ox 05/07/19 12:00 141/57 98 05/07/19 10:00 98 05/07/19 09:32 05/07/19 09:13 93 05/07/19 08:20 92 05/07/19 03:43 93 05/06/19 23:30 93 05/06/19 20:52 96 05/06/19 20:45 05/06/19 19:53 93 05/06/19 16:22 - Physical Examination General: No Apparent Distress HEENT: Positive: PERRL Neck: Positive: neck supple Cardiac: Positive: Reg Rate and Rhythm Lungs: Positive: Decreased Breath Sounds Neuro: Positive: Grossly Intact Abdomen: Positive: Soft Skin: Positive: Clear Extremities: Absent: edema - Labs and Meds Coagulation 05/07/19 Range/Units Unknown PT 23.2 H (12.2-14.9) Sec. INR 2.11 H (0.87-1.13) Comprehensive Metabolic Panel 05/07/19 Range/Units 04:00 Sodium 141 (137-145) mmol/L Potassium 3.6 (3.6-5.0) mmol/L Chloride 104.2 (98-107) mmol/L Carbon Dioxide 23 (22-30) mmol/L BUN 28 H (9-20) mg/dL Creatinine 0.8 (0.8-1.5) mg/dL Glucose 142 H (75-100) mg/dL Calcium 8.0 L (8.4-10.2) mg/dL
[2019-05-07] MEDS: METOPROLOL TARTRATE 50 MG TAB PO SCH ×2 (14:24→21:28)
[2019-05-07] MEDS: methylPREDNISolone Sod Succinate 40 MG/1 ML INJ IV SCH (21:29)
[2019-05-08 04:59] LABS: Basophils % (Auto) 0.1 % (0.0-1.8); Hematocrit 34.8 % (35.5-45.6); Hemoglobin 11.7 gm/dl (11.8-15.2); Lymphocytes % (Auto) 6.5 % (13.4-35.0); Mean Corpuscular HGB Conc 34 % (32-34); Mean Corpuscular Volume 88 fl (84-94); Monocytes # (Auto) 0.6 K/mm3 (0.0-0.8); Monocytes % (Auto) 3.9 % (0.0-7.3); Platelet Count 109 K/mm3 (140-440); Red Blood Count 3.98 M/mm3 (3.65-5.03); Red Cell Distribution Width 15.9 % (13.2-15.2)
[2019-05-08 05:09] LABS: INR 1.77 (0.87-1.13)
[2019-05-08 05:22] LABS: BUN/Creatinine Ratio 43; Blood Urea Nitrogen 34 mg/dL (9-20); Hemolysis Index 3
[2019-05-08] MEDS: methylPREDNISolone Sod Succinate 40 MG/1 ML INJ IV SCH ×3 (05:41→21:30)
[2019-05-08] MEDS: METOPROLOL TARTRATE 50 MG TAB PO SCH ×2 (09:49→21:30)
[2019-05-08] MEDS: FAMOTIDINE 10 MG TAB PO SCH ×2 (09:50→21:30)
[2019-05-08] MEDS: FUROSEMIDE 40 MG/4 ML INJ IV SCH (09:50)
--- NOTE | 2019-05-08 09:51 | Progress Note ---
Assessment and Plan Acute CHF echocardiogram shows normal left ventricle systolic function. Hx of peripheral arterial disease Paroxysmal atrial fibrillation Recommendations: Continue medical therapy for heart failure with a preserved ejection fraction. Coumadin therapy on hold pending further invasive cardiac assessment. We will proceed with a cardiac cath once INR is less than 1.5. Subjective Date of service: 05/08/19 Interval history: Patient has no cardiac complaints. Objective Vital Signs Temp Pulse Pulse Pulse Pulse Resp BP 05/08/19 09:41 05/08/19 08:35 97.4 F L 67 18 148/63 05/08/19 04:21 97.4 F L 05/08/19 04:20 61 20 162/75 05/08/19 00:02 97.8 F 05/08/19 00:01 65 18 109/78 05/07/19 20:16 97.9 F 05/07/19 20:15 67 20 140/55 05/07/19 19:50 05/07/19 14:24 70 136/55 05/07/19 12:00 98.0 F 62 18 05/07/19 11:54 63 141/57 05/07/19 10:00 61 62 62 62 18 BP Pulse Ox 05/08/19 09:41 96 05/08/19 08:35 96 05/08/19 04:21 05/08/19 04:20 96 05/08/19 00:02 05/08/19 00:01 97 05/07/19 20:16 05/07/19 20:15 97 05/07/19 19:50 95 05/07/19 14:24 05/07/19 12:00 141/57 98 05/07/19 11:54 95 05/07/19 10:00 98 - Physical Examination General: No Apparent Distress HEENT: Positive: PERRL Neck: Positive: neck supple Cardiac: Positive: Reg Rate and Rhythm Lungs: Positive: Decreased Breath Sounds Neuro: Positive: Grossly Intact - Labs and Meds Coagulation 05/08/19 Range/Units 04:32 PT 20.2 H (12.2-14.9) Sec. INR 1.77 H (0.87-1.13) CBC 05/08/19 Range/Units 04:32 WBC 15.6 H (4.5-11.0) K/mm3 RBC 3.98 (3.65-5.03) M/mm3 Hgb 11.7 L (11.8-15.2) gm/dl Hct 34.8 L (35.5-45.6) % Plt Count 109 L (140-440) K/mm3 Lymph # 1.0 L (1.2-5.4) K/mm3 [place] # 0.6 (0.0-0.8) K/mm3 Eos # 0.0 (0.0-0.4) K/mm3 Baso # 0.0 (0.0-0.1) K/mm3 Comprehensive Metabolic Panel 05/08/19 Range/Units 04:32 Sodium 140 (137-145) mmol/L Potassium 3.6 (3.6-5.0) mmol/L Chloride 102.7 (98-107) mmol/L Carbon Dioxide 25 (22-30) mmol/L BUN 34 H (9-20) mg/dL Creatinine 0.8 (0.8-1.5) mg/dL Glucose 135 H (75-100) mg/dL Calcium 8.0 L (8.4-10.2) mg/dL
--- NOTE | 2019-05-08 14:33 | Progress Note ---
Assessment and Plan /Paroxysmal atrial fibrillation with RVR s/p Cardizem drip, now sinus rhythm Continue beta blockers, Coumadin was stopped for possible cardiac cath tomorrow Full cardiac workup, cardiology following /-Acute severe COPD exacerbation Probably secondary to acute bronchitis On IV steroids, neb tx and IV antibiotic - will treat for total 5 days /-Acute hypoxic respiratory failure Continue oxygen and titrate O2 sats to more than 90% BiPAP as needed, secondary to COPD exacerbation /New onset 2 to diastolic CHF On IV diuretic/CHF protocol Echocardiogram to assess EF 55% /-Hypertensive urgency BP much improved now /-Leukocytosis with SIRS; probably due to acute bronchitis Empiric antibiotics, supportive care /-Chronic anticoagulation use; for paroxysmal atrial fib Coumadin is held by cardiology For possible cardiac procedure / Hypokalemia;Corrected /-Hyperlipidemia; continue statin /-DVT prophylaxis; SCD Monitor closely and adjust management as needed Disposition; continue inpatient management Discharge home in medically stable Brief History: Patient is a 64 year old male with a history of COPD and paroxysmal atrial fibrillation who presented to the ED on account of a day history of worsening shortness of breath on mild exertion. He has associated bilateral ankle swelling, palpitation, cough productive of greenish sputum, orthopnea and PND. In the ED, patient was placed on BiPAP and admitted for further evaluation and management. Hospitalist Physical General appearance: Present: no acute distress, well-nourished - EENT Eyes: Present: PERRL, EOM intact - Neck Neck: Present: supple, normal ROM - Respiratory Respiratory effort: normal Respiratory: bilateral: diminished, negative: rales, rhonchi, wheezing - Cardiovascular Rhythm: regular Heart Sounds: Present: S1 & S2 - Extremities Extremities: no ischemia, No edema - Abdominal General gastrointestinal: soft, non-tender, non-distended, normal bowel sounds - Integumentary Integumentary: Present: clear, warm - Psychiatric Psychiatric: appropriate mood/affect, cooperative - Neurologic Neurologic: CNII-XII intact, moves all extremities Subjective Date of service: 05/08/19 Interval history: Patient seen and examined. Medical records and medication list reviewed. No acute event overnight noted by the RN. Patient denies any chest pain or difficulty breathing. Patient is tolerating diet. Discussed plan of care at bedside with patient. Planned for cardiac cath tomorrow Objective - Constitutional Vitals: Vital Signs - 12hr 05/08/19 05/08/19 05/08/19 04:20 04:21 08:35 Temperature 97.4 F L 97.4 F L Pulse Rate 61 67 Pulse Rate [ Apical] Pulse Rate [ Left Radial] Pulse Rate [ Right Radial] Respiratory 20 18 Rate Blood Pressure 162/75 148/63 O2 Sat by Pulse 96 96 Oximetry 05/08/19 05/08/19 05/08/19 09:41 09:47 09:49 Temperature Pulse Rate 63 Pulse Rate [ Apical] Pulse Rate [ Left Radial] Pulse Rate [ Right Radial] Respiratory Rate Blood Pressure 151/61 151/61 O2 Sat by Pulse 96 Oximetry 05/08/19 05/08/19 10:00 11:31 Temperature 97.9 F Pulse Rate 49 L 59 L Pulse Rate [ 63 Apical] Pulse Rate [ 63 Left Radial] Pulse Rate [ 63 Right Radial] Respiratory 21 18 Rate Blood Pressure 133/57 O2 Sat by Pulse 98 94 Oximetry - Labs CBC & Chem 7: 05/09/19 04:18 05/09/19 04:18 Labs: Abnormal lab results 05/08/19 05/08/19 05/08/19 Range/Units 04:32 04:32 04:32 WBC 15.6 H (4.5-11.0) K/mm3 Hgb 11.7 L (11.8-15.2) gm/dl Hct 34.8 L (35.5-45.6) % RDW 15.9 H (13.2-15.2) % Plt Count 109 L (140-440) K/mm3 Lymph % (Auto) 6.5 L (13.4-35.0) % Lymph # 1.0 L (1.2-5.4) K/mm3 Seg Neutrophils % 89.5 H (40.0-70.0) % Seg Neutrophils # 14.0 H (1.8-7.7) K/mm3 PT 20.2 H (12.2-14.9) Sec. INR 1.77 H (0.87-1.13) BUN 34 H (9-20) mg/dL Glucose 135 H (75-100) mg/dL POC Glucose (70-105) Calcium 8.0 L (8.4-10.2) mg/dL 05/08/19 Range/Units 11:51 WBC (4.5-11.0) K/mm3 Hgb (11.8-15.2) gm/dl Hct (35.5-45.6) % RDW (13.2-15.2) % Plt Count (140-440) K/mm3 Lymph % (Auto) (13.4-35.0) % Lymph # (1.2-5.4) K/mm3 Seg Neutrophils % (40.0-70.0) % Seg Neutrophils # (1.8-7.7) K/mm3 PT (12.2-14.9) Sec. INR (0.87-1.13) BUN (9-20) mg/dL Glucose (75-100) mg/dL POC Glucose 144 H (70-105) Calcium (8.4-10.2) mg/dL
[2019-05-09 04:48] LABS: Basophils % (Auto) 0.1 % (0.0-1.8); Eosinophils % (Auto) 0.1 % (0.0-4.3); Hematocrit 35.6 % (35.5-45.6); Hemoglobin 11.9 gm/dl (11.8-15.2); Lymphocytes # (Auto) 0.9 K/mm3 (1.2-5.4); Lymphocytes % (Auto) 8.1 % (13.4-35.0); Mean Corpuscular HGB Conc 33 % (32-34); Mean Corpuscular Volume 87 fl (84-94); Monocytes # (Auto) 0.6 K/mm3 (0.0-0.8); Monocytes % (Auto) 4.8 % (0.0-7.3); Red Blood Count 4.09 M/mm3 (3.65-5.03); Red Cell Distribution Width 15.9 % (13.2-15.2)
[2019-05-09 04:57] LABS: Platelet Count 84 K/mm3 (140-440)
[2019-05-09 05:00] LABS: INR 1.48 (0.87-1.13)
[2019-05-09] MEDS: methylPREDNISolone Sod Succinate 40 MG/1 ML INJ IV SCH ×2 (05:07→13:40)
[2019-05-09 05:31] LABS: BUN/Creatinine Ratio 40; Blood Urea Nitrogen 32 mg/dL (9-20); Hemolysis Index 1
[2019-05-09] MEDS: METOPROLOL TARTRATE 50 MG TAB PO SCH ×2 (10:17→22:04)
[2019-05-09] MEDS: FAMOTIDINE 10 MG TAB PO SCH ×2 (10:17→22:03)
[2019-05-09] MEDS: FUROSEMIDE 40 MG/4 ML INJ IV SCH (10:17)
--- NOTE | 2019-05-09 10:38 | Progress Note ---
<MILTON EDWARD - Last Filed: 05/09/19 10:33> Assessment and Plan Acute CHF echocardiogram shows normal left ventricle systolic function. Leukocytosis Hx of peripheral arterial disease Paroxysmal atrial fibrillation warfarin is on hold Hx of Antiphospholipid syndrome per pt follows with farmhand, Dr Alba Bunch, as an outpatient Recommendations: Obtain records for review. Hematology consultation and evaluation for thrombocytopenia. Continue medical therapy for heart failure with a preserved ejection fraction. Subjective Date of service: 05/09/19 Interval history: Cardiac catheterization cancelled due to decline in platelets, today 84,000. Objective Vital Signs Temp Pulse Resp BP Pulse Ox 05/09/19 10:17 69 168/72 05/09/19 08:20 97.4 F L 60 18 139/62 95 05/09/19 03:36 97.6 F 61 18 143/68 97 05/08/19 22:50 97.4 F L 58 L 18 131/64 98 05/08/19 22:00 58 L 05/08/19 21:30 66 150/60 05/08/19 19:32 98.0 F 66 18 150/60 95 05/08/19 17:00 56 L 05/08/19 16:58 98.3 F 64 18 161/71 97 05/08/19 11:31 97.9 F 59 L 18 133/57 94 - Physical Examination General: No Apparent Distress HEENT: Positive: PERRL Neck: Positive: neck supple Cardiac: Positive: Reg Rate and Rhythm Lungs: Positive: Decreased Breath Sounds Neuro: Positive: Grossly Intact Extremities: Absent: edema - Labs and Meds Coagulation 05/09/19 Range/Units 04:18 PT 17.6 H (12.2-14.9) Sec. INR 1.48 H (0.87-1.13) CBC 05/09/19 Range/Units 04:18 WBC 11.6 H (4.5-11.0) K/mm3 RBC 4.09 (3.65-5.03) M/mm3 Hgb 11.9 (11.8-15.2) gm/dl Hct 35.6 (35.5-45.6) % Plt Count 84 L (140-440) K/mm3 Lymph # 0.9 L (1.2-5.4) K/mm3 [place] # 0.6 (0.0-0.8) K/mm3 Eos # 0.0 (0.0-0.4) K/mm3 Baso # 0.0 (0.0-0.1) K/mm3 Comprehensive Metabolic Panel 05/09/19 Range/Units 04:18 Sodium 140 (137-145) mmol/L Potassium 3.7 (3.6-5.0) mmol/L Chloride 101.3 (98-107) mmol/L Carbon Dioxide 25 (22-30) mmol/L BUN 32 H (9-20) mg/dL Creatinine 0.8 (0.8-1.5) mg/dL Glucose 125 H (75-100) mg/dL Calcium 8.0 L (8.4-10.2) mg/dL <TRAVIS RAYMOND - Last Filed: 05/09/19 22:07> Assessment and Plan the patient was planned for LHC today; however, the patient's platelets notably decreased. The LHc was placed on hold for further evaluation. On discussion with the patient, it was determined that the patient has a history of antiphospholipid antibody syndrome with a history of multiple arterial thrombosis. I called the patient's farmhand, Dr. Alba Bunch, for further consultation. The patient also has a history of anticardiolipin syndrome. He was noted to have a platelet low of 80 in the past 10 years. On conference with Dr. Bunch, it was recommended that the patient undergo cardiac cath while in the hospital so that the patient may be bridged with heparin drip. The patient was recommended to under PCI if needed with treatment with antiplatelet therapy. The patient will be started on heparin gtt. Plan for LHC tomorrow. Patient will reqiure heparin gtt while being reloaded with coumadin. Objective Vital Signs Temp Pulse Pulse Pulse Pulse Resp BP 05/09/19 19:28 97.5 F L 68 20 155/57 05/09/19 18:59 66 179/75 05/09/19 18:00 98.2 F 66 19 05/09/19 17:47 170/75 05/09/19 17:00 77 05/09/19 12:11 97.3 F L 58 L 18 152/65 05/09/19 12:00 57 L 05/09/19 10:17 69 168/72 05/09/19 10:00 53 L 65 65 65 05/09/19 09:15 05/09/19 08:20 97.4 F L 60 18 139/62 05/09/19 03:36 97.6 F 61 18 143/68 05/08/19 22:50 97.4 F L 58 L 18 131/64 BP Pulse Ox 05/09/19 19:28 86 05/09/19 18:59 05/09/19 18:00 179/75 98 05/09/19 17:47 05/09/19 17:00 05/09/19 12:11 98 05/09/19 12:00 05/09/19 10:17 05/09/19 10:00 98 05/09/19 09:15 95 05/09/19 08:20 95 05/09/19 03:36 97 05/08/19 22:50 98 - Labs and Meds Coagulation 05/09/19 05/09/19 Range/Units 04:18 15:45 PT 17.6 H 16.3 H (12.2-14.9) Sec. INR 1.48 H 1.35 H (0.87-1.13) APTT 68.9 H* (24.2-36.6) Sec. CBC 05/09/19 05/09/19 Range/Units 04:18 15:45 WBC 11.6 H (4.5-11.0) K/mm3 RBC 4.09 (3.65-5.03) M/mm3 Hgb 11.9 14.4 (11.8-15.2) gm/dl Hct 35.6 43.0 D (35.5-45.6) % Plt Count 84 L 87 L (140-440) K/mm3 Lymph # 0.9 L (1.2-5.4) K/mm3 [place] # 0.6 (0.0-0.8) K/mm3 Eos # 0.0 (0.0-0.4) K/mm3 Baso # 0.0 (0.0-0.1) K/mm3 Comprehensive Metabolic Panel 05/09/19 Range/Units 04:18 Sodium 140 (137-145) mmol/L Potassium 3.7 (3.6-5.0) mmol/L Chloride 101.3 (98-107) mmol/L Carbon Dioxide 25 (22-30) mmol/L BUN 32 H (9-20) mg/dL Creatinine 0.8 (0.8-1.5) mg/dL Glucose 125 H (75-100) mg/dL Calcium 8.0 L (8.4-10.2) mg/dL
--- NOTE | 2019-05-09 15:11 | Progress Note ---
Assessment and Plan /Paroxysmal atrial fibrillation with RVR s/p Cardizem drip, now sinus rhythm Continue beta blockers, Coumadin was stopped for possible cardiac cath - but cancelled today for thrombocytopenia cardiology following, will place on therapeutic dose of lovenox when coumadin on hold /Hx of Antiphospholipid syndrome per pt - follows with financial adviser, Dr Alba Bunch, as an outpatient - on coumadin, platelets ranges from 160 to 65 per the pt - never required any transfusion nor had any bleeding episodes in the past - will consult hematology per cardiology request to get clearance for cardiac cath /-Acute severe COPD exacerbation Probably secondary to acute bronchitis On IV steroids, neb tx and IV antibiotic - treat for total 5 days - stop day today /-Acute hypoxic respiratory failure Continue oxygen and titrate O2 sats to more than 90% BiPAP as needed, secondary to COPD exacerbation /New onset 2 to diastolic CHF On IV diuretic/CHF protocol Echocardiogram to assess EF 55% /-Hypertensive urgency BP much improved now /-Leukocytosis with SIRS; probably due to acute bronchitis Empiric antibiotics, supportive care /-Chronic anticoagulation use; for paroxysmal atrial fib Coumadin is held by cardiology For possible cardiac procedure / Hypokalemia; Corrected /-Hyperlipidemia; continue statin /-DVT prophylaxis; SCD Monitor closely and adjust management as needed Disposition; continue inpatient management Discharge home in medically stable Brief History: Patient is a 64 year old male with a history of COPD and paroxysmal atrial fibrillation who presented to the ED on account of a day history of worsening shortness of breath on mild exertion. He has associated bilateral ankle swelling, palpitation, cough productive of greenish sputum, orthopnea and PND. In the ED, patient was placed on BiPAP and admitted for further evaluation and management. Hospitalist Physical: General appearance: Present: no acute distress, well-nourished - EENT Eyes: Present: PERRL, EOM intact - Neck Neck: Present: supple, normal ROM - Respiratory Respiratory effort: normal Respiratory: bilateral: diminished, negative: rales, rhonchi, wheezing - Cardiovascular Rhythm: regular Heart Sounds: Present: S1 & S2 - Extremities Extremities: no ischemia, No edema - Abdominal General gastrointestinal: soft, non-tender, non-distended, normal bowel sounds - Integumentary Integumentary: Present: clear, warm - Psychiatric Psychiatric: appropriate mood/affect, cooperative - Neurologic Neurologic: CNII-XII intact, moves all extremities Subjective Date of service: 05/09/19 Interval history: Patient seen and examined. Medical records and medication list reviewed. No acute event overnight noted by the RN. Patient denies any chest pain or difficulty breathing. Patient is tolerating diet. Discussed plan of care at bedside with patient. cardiac cath held today for low platelets Objective - Constitutional Vitals: Vital Signs - 12hr 05/09/19 05/09/19 05/09/19 03:36 08:20 09:15 Temperature 97.6 F 97.4 F L Pulse Rate 61 60 Pulse Rate [ Apical] Pulse Rate [ Left Radial] Pulse Rate [ Right Radial] Respiratory 18 18 Rate Blood Pressure 143/68 139/62 O2 Sat by Pulse 97 95 95 Oximetry 05/09/19 05/09/19 10:00 10:17 Temperature Pulse Rate 53 L 69 Pulse Rate [ 65 Apical] Pulse Rate [ 65 Left Radial] Pulse Rate [ 65 Right Radial] Respiratory Rate Blood Pressure 168/72 O2 Sat by Pulse 98 Oximetry - Labs CBC & Chem 7: 05/10/19 06:36 05/10/19 06:36 Labs: Abnormal lab results 05/09/19 05/09/19 05/09/19 Range/Units 04:18 04:18 04:18 WBC 11.6 H (4.5-11.0) K/mm3 RDW 15.9 H (13.2-15.2) % Plt Count 84 L (140-440) K/mm3 Lymph % (Auto) 8.1 L (13.4-35.0) % Lymph # 0.9 L (1.2-5.4) K/mm3 Seg Neutrophils % 86.9 H (40.0-70.0) % Seg Neutrophils # 10.1 H (1.8-7.7) K/mm3 PT 17.6 H (12.2-14.9) Sec. INR 1.48 H (0.87-1.13) BUN 32 H (9-20) mg/dL Glucose 125 H (75-100) mg/dL POC Glucose (70-105) Calcium 8.0 L (8.4-10.2) mg/dL 05/09/19 05/09/19 05/09/19 Range/Units 05:15 08:28 12:20 WBC (4.5-11.0) K/mm3 RDW (13.2-15.2) % Plt Count (140-440) K/mm3 Lymph % (Auto) (13.4-35.0) % Lymph # (1.2-5.4) K/mm3 Seg Neutrophils % (40.0-70.0) % Seg Neutrophils # (1.8-7.7) K/mm3 PT (12.2-14.9) Sec. INR (0.87-1.13) BUN (9-20) mg/dL Glucose (75-100) mg/dL POC Glucose 125 H 116 H 152 H (70-105) Calcium (8.4-10.2) mg/dL
[2019-05-09 16:00] LABS: Hemoglobin 14.4 gm/dl (11.8-15.2)
[2019-05-09] MEDS ORDERED: HEPARIN/ 0.45% NACL DRIP 25,000 UNIT/500 ML BAG IV SCH (16:00)
[2019-05-09 16:10] LABS: INR 1.35 (0.87-1.13)
[2019-05-09 16:28] LABS: Partial Thromboplastin Time 68.9 Sec. (24.2-36.6)
[2019-05-09] MEDS ORDERED: WARFARIN 2.5 MG TAB PO SCH (17:00)
[2019-05-09] MEDS ORDERED: ENOXAPARIN 80 MG/0.8 ML INJ SUB-Q SCH (22:00)
[2019-05-10 05:42] LABS: Iron 65 ug/dL (49-181); Total Iron Binding Capacity 248 mcg/dL (250-450)
--- NOTE | 2019-05-10 07:15 | Event Note ---
Date: 05/10/19 [id number]
[2019-05-10 07:20] LABS: Hematocrit 36.3 % (35.5-45.6); Mean Corpuscular HGB Conc 33 % (32-34); Mean Corpuscular Volume 87 fl (84-94); Platelet Count 61 K/mm3 (140-440); Red Blood Count 4.16 M/mm3 (3.65-5.03); Red Cell Distribution Width 15.7 % (13.2-15.2)
[2019-05-10 07:30] LABS: INR 1.33 (0.87-1.13)
[2019-05-10 07:52] LABS: BUN/Creatinine Ratio 39; Blood Urea Nitrogen 31 mg/dL (9-20); Calcium 7.8 mg/dL (8.4-10.2); Hemolysis Index 3
[2019-05-10] MEDS: FAMOTIDINE 10 MG TAB PO SCH ×2 (10:00→21:48)
[2019-05-10] MEDS: METOPROLOL TARTRATE 50 MG TAB PO SCH ×2 (10:00→21:48)
[2019-05-10] MEDS ORDERED: SODIUM CHLORIDE 0.9% 500 ML 500 ML ONE (10:43)
[2019-05-10] MEDS: fentaNYL 100 MCG/2 ML INJ ONE ×2 (11:01→11:15)
[2019-05-10] MEDS: MIDAZOLAM 2 MG/2 ML INJ ONE ×2 (11:01→11:15)
[2019-05-10] MEDS: LIDOCAINE (2%) 20 MG/1 ML VIAL 20 ML MDV INFILTRATI ONE ×2 (11:01→11:15)
[2019-05-10] MEDS: VERAPAMIL 5 MG/2 ML INJ ONE ×2 (11:02→11:16)
[2019-05-10] MEDS: HEPARIN 10,000 UNITS/10 ML VIAL ONE ×2 (11:02→11:16)
[2019-05-10] MEDS: HEPARIN/NS 5000 UNIT/500ML 1,000 ML IR ONE ×2 (11:02→11:15)
[2019-05-10] MEDS: NITROGLYCERIN SYRINGE 3 ML ONE ×2 (11:03→11:16)
--- NOTE | 2019-05-10 12:18 | Event Note ---
Date: 05/10/19 We performed cardiac catheterization successfully via the right radial approach, no complications. Findings: No significant coronary artery disease, mild irregularities noted otherwise essentially normal coronaries. Normal left ventricle 6 function, ejection fraction around 55-60%. Recommendations: We will restart warfarin 5 mg daily, patient will be bridged until he achieves target INR. Due to progressive thrombocytopenia, we would prefer bridge therapy with Lovenox instead of heparin.
--- NOTE | 2019-05-10 12:28 | Cardiac Catherization Report ---
CARDIAC CATHETERIZATION REPORT REASON FOR PROCEDURE: Congestive heart failure. PROCEDURES: 1. Left heart catheterization. 2. Selective left and right coronary angiography. 3. Left ventricle angiography. 4. Sedation time, start 11:15, end 11:30. DESCRIPTION OF PROCEDURE: The patient was prepped and draped in a sterile fashion after informed consent. The right radial cath site was prepped and draped after a negative Brando's test. The right radial artery was entered using Seldinger technique followed by placement of a 6-Malay hydrophilic sheath. Routine radial cocktail was administered via the sheath. Left coronary angiography was performed using a #3.5 left Ant catheter. A #4 right Ant was used for right coronary angiography. The pigtail catheter was used for left ventricular angiography. Catheters were removed, sheath removed, and hemostasis achieved using manual compression. The patient was returned to the postprocedure unit in stable condition. There were no complications. FINDINGS: HEMODYNAMICS: Left ventricular end-diastolic pressure was 24, following coronary angiography. Ascending aortic pressure was 150/61. There was no significant pressure gradient on pullback across the aortic valve. CORONARY ANGIOGRAPHY: Left main coronary artery contained mild luminal irregularities. Mild luminal irregularities were also noted in the proximal to mid LAD. The circumflex artery and its obtuse marginal branches were free of significant disease. The right coronary artery was dominant and similarly contained mild luminal irregularities. There was normal left ventricular systolic function, ejection fraction 55-60%. CONCLUSION: 1. Mild luminal irregularities as above. No significant obstructive coronary disease is noted. 2. Normal left ventricular systolic function, ejection fraction 55-60%. RECOMMENDATIONS: Risk factor modification and medical therapy. JOB# [id number] CA/NTS
[2019-05-10] MEDS ORDERED: SODIUM CHLORIDE 0.9% 1000 ML 1,000 ML IV SCH (13:00)
--- NOTE | 2019-05-10 14:12 | Progress Note ---
Assessment and Plan /Paroxysmal atrial fibrillation with RVR s/p Cardizem drip, now sinus rhythm Continue beta blockers, Coumadin was stopped for cardiac cath whiuch was delayed for thrombocytopenia s/p cardiac cath today showed normal coronaries resume coumadin today, will con on therapeutic dose of lovenox till INR therapeutic /Hx of Antiphospholipid syndrome per pt - follows with hair or beauty salon manager, Dr Alba Bunch, as an outpatient - on coumadin, platelets ranges from 160 to 65 per the pt - never required any transfusion nor had any bleeding episodes in the past - Dr Kelly consulted /-Acute severe COPD exacerbation Probably secondary to acute bronchitis Placed On IV steroids, neb tx and IV antibiotic - treated with abx for total 5 days /-Acute hypoxic respiratory failure Continue oxygen and titrate O2 sats to more than 90% BiPAP as needed, secondary to COPD exacerbation /New onset 2 to diastolic CHF On IV diuretic/CHF protocol Echocardiogram showed EF 55% /-Hypertensive urgency BP much improved now /-Leukocytosis with SIRS; probably due to acute bronchitis Empiric antibiotics, supportive care /-Chronic anticoagulation use; for paroxysmal atrial fib Coumadin is held by cardiology For possible cardiac procedure / Hypokalemia; replete /-Hyperlipidemia; continue statin /-DVT prophylaxis; SCD Monitor closely and adjust management as needed Disposition; Discharge home [facility] tomorrow when platelets stable Brief History: Patient is a 64 year old male with a history of COPD and paroxysmal atrial fibrillation who presented to the ED on account of a day history of worsening shortness of breath on mild exertion. He has associated bilateral ankle swelling, palpitation, cough productive of greenish sputum, orthopnea and PND. In the ED, patient was placed on BiPAP and admitted for further evaluation and management. patient was placed on cardizem drip for atrial fib then changed to po dose. Cardiology consulted for CHF and atrial fib, recommended cardiac cath - done today showed normal coronaries. possible d/c tomorrow if CBC stable. Hospitalist Physical: General appearance: Present: no acute distress, well-nourished - EENT Eyes: Present: PERRL, EOM intact - Neck Neck: Present: supple, normal ROM - Respiratory Respiratory effort: normal Respiratory: bilateral: diminished, negative: rales, rhonchi, wheezing - Cardiovascular Rhythm: regular Heart Sounds: Present: S1 & S2 - Extremities Extremities: no ischemia, No edema - Abdominal General gastrointestinal: soft, non-tender, non-distended, normal bowel sounds - Integumentary Integumentary: Present: clear, warm - Psychiatric Psychiatric: appropriate mood/affect, cooperative - Neurologic Neurologic: CNII-XII intact, moves all extremities Subjective Date of service: 05/10/19 Interval history: Patient seen and examined. Medical records and medication list reviewed. No acute event overnight noted by the RN. Patient denies any chest pain or difficulty breathing. Patient is tolerating diet. Discussed plan of care at bedside with patient. Objective - Constitutional Vitals: Vital Signs - 12hr 05/10/19 05/10/19 05/10/19 04:36 07:40 12:14 Temperature 98.0 F 98.1 F 97.7 F Pulse Rate 51 L 62 64 Respiratory 18 18 18 Rate Blood Pressure 144/61 169/71 171/71 O2 Sat by Pulse 97 97 95 Oximetry - Labs CBC & Chem 7: 05/10/19 06:36 05/10/19 06:36 Labs: Abnormal lab results 05/09/19 05/09/19 05/09/19 Range/Units 15:45 15:45 16:54 WBC (4.5-11.0) K/mm3 RDW (13.2-15.2) % Plt Count 87 L (140-440) K/mm3 PT 16.3 H (12.2-14.9) Sec. INR 1.35 H (0.87-1.13) APTT 68.9 H* (24.2-36.6) Sec. Potassium (3.6-5.0) mmol/L BUN (9-20) mg/dL POC Glucose 140 H (70-105) Calcium (8.4-10.2) mg/dL TIBC (250-450) mcg/dL Folate (7.3-26.0) ng/mL 05/09/19 05/10/19 05/10/19 Range/Units 20:38 04:30 04:30 WBC (4.5-11.0) K/mm3 RDW (13.2-15.2) % Plt Count (140-440) K/mm3 PT (12.2-14.9) Sec. INR (0.87-1.13) APTT (24.2-36.6) Sec. Potassium (3.6-5.0) mmol/L BUN (9-20) mg/dL POC Glucose 162 H (70-105) Calcium (8.4-10.2) mg/dL TIBC 248 L (250-450) mcg/dL Folate 4.00 L (7.3-26.0) ng/mL 05/10/19 05/10/19 05/10/19 Range/Units 06:36 06:36 06:36 WBC 11.4 H (4.5-11.0) K/mm3 RDW 15.7 H (13.2-15.2) % Plt Count 61 L (140-440) K/mm3 PT 16.1 H (12.2-14.9) Sec. INR 1.33 H (0.87-1.13) APTT (24.2-36.6) Sec. Potassium 3.4 L (3.6-5.0) mmol/L BUN 31 H (9-20) mg/dL POC Glucose (70-105) Calcium 7.8 L (8.4-10.2) mg/dL TIBC (250-450) mcg/dL Folate (7.3-26.0) ng/mL
[2019-05-10] MEDS: methylPREDNISolone Sod Succinate 40 MG/1 ML INJ IV SCH (14:35)
[2019-05-10] MEDS: FOLIC ACID/VIT B COMP W-C 1 MG (RENAL CAPS) PO SCH (14:35)
[2019-05-10] MEDS: FUROSEMIDE 40 MG/4 ML INJ IV SCH (14:35)
[2019-05-10] MEDS ORDERED: WARFARIN 5 MG TAB PO SCH (17:00)
--- NOTE | 2019-05-10 21:13 | Consultation ---
REFERRING PHYSICIAN: Dr. Ann. REASON FOR CONSULTATION: Thrombocytopenia. 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 During this admission, the patient is being treated for COPD exacerbation. The patient was found to have thrombocytopenia have been asked to evaluate the patient. The patient is on anticoagulation for atrial fibrillation and recurrent thrombosis. It appears the patient has antiphospholipid syndrome and Eliquis is not indicated for that diagnosis. The patient has home INR monitoring. He takes 5 mg 5 days and 2.5 on 2 days, Wednesdays and Sundays. With his home INR, he has been coordinating with the environmental field technician. He has not seen a environmental field technician for 6 months. PAST MEDICAL HISTORY: COPD, hypertension, hyperlipidemia, peripheral vascular disease, antiphospholipid syndrome, aortic surgery. PAST SURGICAL HISTORY: Aortic bypass, left iliac artery surgery. SOCIAL HISTORY: Ex-smoker. FAMILY HISTORY: Hypertension. ALLERGIES: ASPIRIN. PHYSICAL EXAMINATION: VITAL SIGNS: Temperature 98, pulse 62, respirations 18, BP 169/71. HEENT: No pallor, no icterus. NECK: No neck lymph nodes. HEART: S1, S2. LUNGS: Clear to auscultation. ABDOMEN: Soft. Scar of surgery. EXTREMITIES: No calf tenderness. NEUROLOGIC: Alert, awake. LABORATORY DATA: White cell 11, hemoglobin 12, MCV 87, platelets 61, it was 87 before. PTT was high. INR at 1.35. Potassium 3.4, creatinine 0.8, calcium 7.8. Folic acid 4, B12 of 400. Serum iron 65. RADIOLOGY: Chest x-ray was done. ASSESSMENT: 1. History of recurrent thrombosis. The patient was on Coumadin 5 mg and 2.5 mg. The INR is low. Platelets are low. This was a challenging scenario, antiphospholipid syndrome patient sometimes will have low platelet. Due to his history of recurrent thrombosis, anticoagulation was suggested. They can look into Lovenox in the short term. 2. Chronic obstructive pulmonary disease exacerbation, on antibiotics. 3. Paroxysmal atrial fibrillation with rapid ventricular response. 4. History of respiratory failure. 5. History of hypertension. 6. History of leukocytosis. 7. History of hyperlipidemia. 8. The low platelet may also be because of medications. At this time, he is on heparin drip. He has received Levaquin in the recent past. I will follow the patient during inpatient stay. I will discuss with Dr. Ann. JOB# [id number] NM/NTS
[2019-05-10] MEDS: ENOXAPARIN 80 MG/0.8 ML INJ SUB-Q SCH (21:48)
[2019-05-11] MEDS ORDERED: POTASSIUM CHLORIDE ER 20 MEQ TAB PO ONE ×2 (01:15→06:00)
[2019-05-11 06:03] LABS: Hematocrit 36.3 % (35.5-45.6); Hemoglobin 12.4 gm/dl (11.8-15.2); Mean Corpuscular HGB Conc 34 % (32-34); Mean Corpuscular Volume 86 fl (84-94); Red Blood Count 4.23 M/mm3 (3.65-5.03); Red Cell Distribution Width 15.5 % (13.2-15.2)
[2019-05-11 06:06] LABS: INR 1.25 (0.87-1.13); Platelet Count 60 K/mm3 (140-440)
[2019-05-11 06:12] LABS: BUN/Creatinine Ratio 43; Blood Urea Nitrogen 34 mg/dL (9-20); Calcium 7.6 mg/dL (8.4-10.2); Hemolysis Index 6
--- NOTE | 2019-05-11 07:44 | Hem/Onc Progress Note ---
Assessment and Plan 1. History of recurrent thrombosis. The patient was on Coumadin 5 mg and 2.5 mg. The INR is low. Platelets are low. This was a challenging scenario, antiphospholipid syndrome patient sometimes will have low platelet. Due to his history of recurrent thrombosis, anticoagulation was suggested. They can look into Lovenox in the short term. 2. Chronic obstructive pulmonary disease exacerbation, on antibiotics. 3. Paroxysmal atrial fibrillation with rapid ventricular response. 4. History of respiratory failure. 5. History of hypertension. 6. History of leukocytosis. 7. History of hyperlipidemia. 8. The low platelet may also be because of medications. At this time, he is on heparin drip. He has received Levaquin in the recent past. I will follow the patient during inpatient stay. I will discuss with Dr. Ann. 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 - Patient Problems (1) Thrombocytopenia Current Visit: Yes Status: Acute (2) Anticoagulated on Coumadin Current Visit: Yes Status: Acute Subjective Date of service: 05/11/19 Principal diagnosis: arterial thrombus on anticoagulation and low platelets Interval history: on lovenox and coumadin Objective - Constitutional Vitals: Last Vital Signs Temp 98.2 F 05/11/19 04:05 Pulse 52 L 05/11/19 04:05 Resp 18 05/11/19 04:05 BP 132/69 05/11/19 04:05 Pulse Ox 94 05/11/19 04:05 - Labs Lab Results: Laboratory Results - last 24 hr 05/10/19 05/10/19 05/11/19 06:36 07:49 04:41 WBC RBC Hgb Hct MCV MCH MCHC RDW Plt Count PT 15.4 H INR 1.25 H Sodium 140 Potassium 3.4 L Chloride 100.3 Carbon Dioxide 27 Anion Gap 16 BUN 31 H Creatinine 0.8 Estimated GFR > 60 BUN/Creatinine Ratio 39 Glucose 89 POC Glucose 83 Calcium 7.8 L 05/11/19 05/11/19 04:41 04:41 WBC 12.0 H RBC 4.23 Hgb 12.4 Hct 36.3 MCV 86 MCH 29 MCHC 34 RDW 15.5 H Plt Count 60 L PT INR Sodium 139 Potassium 3.4 L Chloride 99.5 Carbon Dioxide 26 Anion Gap 17 BUN 34 H Creatinine 0.8 Estimated GFR > 60 BUN/Creatinine Ratio 43 Glucose 93 POC Glucose Calcium 7.6 L Medications & Allergies - Medications Allergies/Adverse Reactions: Allergies aspirin Adverse Reaction (Verified 05/05/19 20:10) Unknown Home Medications: Home Medications Medication Instructions Recorded Confirmed Last Taken Type Amoxicillin [Trimox CAP] 500 mg PO Q8H 05/05/19 05/05/19 Unknown History Atenolol [Tenormin] 25 mg PO DAILY 05/05/19 05/05/19 Unknown History AtorvaSTATin [Lipitor] 10 mg PO QHS 05/05/19 05/05/19 Unknown History Benzonatate [Tessalon Perles] 100 mg PO Q8HR 05/05/19 05/05/19 Unknown History Fluticasone [Flonase] 1 spray NS QDAY 05/05/19 05/05/19 Unknown History Warfarin Sodium [Coumadin] 5 mg PO DAILY 05/05/19 05/05/19 Unknown History hydrALAZINE [Apresoline TAB] 10 mg PO QHS 05/05/19 05/05/19 Unknown History Active Medications: Generic Name Dose Route Start Last Admin Trade Name Freq PRN Reason Stop Dose Admin Acetaminophen 650 mg 05/05/19 22:45 Tylenol PO Q4H PRN Pain MILD(1-3)/Fever >100.5/MELENDEZ Atorvastatin Calcium 10 mg 05/06/19 22:00 05/10/19 21:48 Lipitor PO 10 mg QHS JESSIE Administration Enoxaparin Sodium 80 mg 05/10/19 22:00 05/10/19 21:48 Lovenox SUB-Q 80 mg Q12HR JESSIE Administration Famotidine 10 mg 05/06/19 10:00 05/10/19 21:48 Pepcid PO 10 mg BID JESSIE Administration Furosemide 40 mg 05/06/19 10:00 05/10/19 14:35 Lasix IV 40 mg QDAY JESSIE Administration Hydralazine HCl 10 mg 05/05/19 22:56 05/09/19 18:59 Apresoline IV 10 mg Q4HR PRN Administration Blood Pressure Levalbuterol HCl 0.63 mg 05/06/19 01:02 Xopenex IH Q8HRT PRN Shortness Of Breath Methylprednisolone Sodium Succinate 40 mg 05/10/19 10:00 10/03/19 14:35 Solu-Medrol IV 40 mg Q24HR JESSIE Administration Metoprolol Tartrate 50 mg 05/07/19 15:00 05/10/19 21:48 Lopressor PO 50 mg BID JESSIE Administration Multivit/Ca Carb/B Cmplx/FA/Prenat 1 cap 05/10/19 10:00 05/10/19 14:35 Renal Caps PO 1 cap QDAY JESSIE Administration Ondansetron HCl 4 mg 05/05/19 22:45 Zofran IV Q8H PRN Nausea And Vomiting Sodium Chloride 10 ml 05/06/19 10:00 05/10/19 21:49 Sodium Chloride Flush Syringe 10 Ml IV 10 ml BID JESSIE Administration Sodium Chloride 10 ml 05/05/19 22:45 Sodium Chloride Flush Syringe 10 Ml IV PRN PRN LINE FLUSH Warfarin Sodium 5 mg 05/10/19 17:00 05/10/19 18:27 Coumadin PO 5 mg DAILY@1700 JESSIE Administration Protocol
--- NOTE | 2019-05-11 09:26 | Progress Note ---
Assessment and Plan Acute CHF - resolved echocardiogram shows normal left ventricle systolic function. cath showing normal coronaries and normal LVEF Leukocytosis Thrombocytopenia Hematology on board Hx of peripheral arterial disease Paroxysmal atrial fibrillation on lovenox and warfarin Hx of Antiphospholipid syndrome per pt follows with air cargo ground crew supervisor, Dr Alba Bunch, as an outpatient Recommendations: May go home cardiac heart on lovenox bridging and warfarin (if ok with hematology) Follow-up with hematology as outpatient Follow-up with [facility] as outpatient (contact info provided to patient) Subjective Date of service: 05/11/19 Principal diagnosis: arterial thrombus on anticoagulation and low platelets Interval history: Patient is doing well. Patient denies chest pain or shortness of breath. No events noted on tele Objective Vital Signs Temp Pulse Resp BP Pulse Ox 05/11/19 04:05 98.2 F 52 L 18 132/69 94 05/10/19 23:53 97.9 F 57 L 18 123/69 95 05/10/19 22:00 74 100 05/10/19 21:48 75 152/60 05/10/19 19:46 98.3 F 72 18 152/60 96 05/10/19 18:26 67 05/10/19 12:14 97.7 F 64 18 171/71 95 - Physical Examination General: No Apparent Distress HEENT: Positive: PERRL Neck: Positive: neck supple Cardiac: Positive: Reg Rate and Rhythm Lungs: Positive: Normal Exam Neuro: Positive: Grossly Intact Abdomen: Positive: Soft Skin: Positive: Clear Extremities: Absent: edema - Labs and Meds Coagulation 05/11/19 Range/Units 04:41 PT 15.4 H (12.2-14.9) Sec. INR 1.25 H (0.87-1.13) CBC 05/11/19 Range/Units 04:41 WBC 12.0 H (4.5-11.0) K/mm3 RBC 4.23 (3.65-5.03) M/mm3 Hgb 12.4 (11.8-15.2) gm/dl Hct 36.3 (35.5-45.6) % Plt Count 60 L (140-440) K/mm3 Comprehensive Metabolic Panel 05/11/19 Range/Units 04:41 Sodium 139 (137-145) mmol/L Potassium 3.4 L (3.6-5.0) mmol/L Chloride 99.5 (98-107) mmol/L Carbon Dioxide 26 (22-30) mmol/L BUN 34 H (9-20) mg/dL Creatinine 0.8 (0.8-1.5) mg/dL Glucose 93 (75-100) mg/dL Calcium 7.6 L (8.4-10.2) mg/dL
[2019-05-11 09:27] LABS: Band Neutrophils # (Manual) 0.5 K/mm3; Basophils % (Manual) 0 % (0.0-1.8); Eosinophils % (Manual) 0 % (0.0-4.3); Total Cells Counted 100
[2019-05-11 09:29] LABS: Tear Drop Cells Rare
[2019-05-11 09:30] LABS: Burr Cells Rare; Ovalocytes Rare; Platelet Estimate Consistent w Auto
[2019-05-11] MEDS: FUROSEMIDE 40 MG/4 ML INJ IV SCH (10:29)
[2019-05-11] MEDS: ENOXAPARIN 80 MG/0.8 ML INJ SUB-Q SCH (10:30)
[2019-05-11] MEDS: methylPREDNISolone Sod Succinate 40 MG/1 ML INJ IV SCH (10:31)
[2019-05-11] MEDS: FOLIC ACID/VIT B COMP W-C 1 MG (RENAL CAPS) PO SCH (10:31)
[2019-05-11] MEDS: FAMOTIDINE 10 MG TAB PO SCH (10:31)
[2019-05-11 10:42] VITALS: BP 166/77
--- NOTE | 2019-05-11 14:07 | Discharge Summary ---
Providers - Providers Date of Admission: 05/05/19 21:50 Date of discharge: 05/11/19 Attending physician: REID ROBERTS 05/06/19 02:55 Consult to Physician [CONS] Routine Comment: Consulting Provider: EREN RUGGIERO Physician Instructions: Reason For Exam: hx afib, now with RVR on cardiezm 05/09/19 15:00 Consult to Physician [CONS] Routine Comment: Consulting Provider: DANIEL KELLY Physician Instructions: Reason For Exam: thrombocytopenia 05/10/19 12:18 Consult to Cardiac Rehabilitation [CONS] Routine Reason For Exam: Cardiac Rehab Evaluation Primary care physician: [facility], Hospitalization Reason for admission: Worsening SOB Condition: Stable Pertinent studies: ECHO CXR Procedures: Heart Cath Hospital course: Patient is a 64 year old male with a history of COPD and paroxysmal atrial fibrillation who presented to the ED on account of a day history of worsening shortness of breath on mild exertion. He has associated bilateral ankle swelling, palpitation, cough productive of greenish sputum, orthopnea and PND. In the ED, patient was placed on BiPAP and admitted for further evaluation and management. patient was placed on cardizem drip for atrial fib then changed to po dose. Cardiology consulted for CHF and atrial fib, recommended cardiac cath - done today showed normal coronaries. Stable at d/c Discharge Diagnosis --Paroxysmal atrial fibrillation with RVR s/p Cardizem drip, now sinus rhythm beta blockers, coumadin s/p cardiac cath today showed normal coronaries --Hx of Antiphospholipid syndrome per pt f/u Dr Alba Bunch, as an outpatient on coumadin .Dr Kelly evaluated --Acute severe COPD exacerbation/ acute bronchitis IV steroids, neb tx and IV antibiotic ,total 5 days --Acute hypoxic respiratory failure oxygen and titrate O2 sats to more than 90% BiPAP as needed, secondary to COPD exacerbation --New onset 2 to diastolic CHF On IV diuretic/CHF protocol Echocardiogram showed EF 55% --Hypertensive urgency: improved --Leukocytosis with SIRS; due to acute bronchitis --Chronic anticoagulation use; for paroxysmal atrial fib --Hypokalemia; replete --Hyperlipidemia; statin --DVT prophylaxis; SCD Stable at DC Disposition: DC-01 TO HOME OR SELFCARE Time spent for discharge: 32 min Core Measure Documentation - Palliative Care Palliative Care/ Comfort Measures: Not Applicable - Core Measures Any of the following diagnoses?: none Exam - Constitutional Vitals: Temp Pulse Resp BP Pulse Ox 98.2 F 52 L 18 166/77 98 05/11/19 09:23 05/11/19 04:05 05/11/19 09:23 05/11/19 09:23 05/11/19 10:00 General appearance: Present: no acute distress, well-nourished - EENT Eyes: Present: PERRL, EOM intact - Neck Neck: Present: supple, normal ROM - Respiratory Respiratory effort: normal Respiratory: bilateral: diminished, negative: rales, rhonchi, wheezing - Cardiovascular Rhythm: regular Heart Sounds: Present: S1 & S2 - Extremities Extremities: no ischemia, No edema - Abdominal General gastrointestinal: Present: soft, non-tender, non-distended, normal bowel sounds - Integumentary Integumentary: Present: clear, warm - Musculoskeletal Musculoskeletal: strength equal bilaterally - Psychiatric Psychiatric: appropriate mood/affect, cooperative - Neurologic Neurologic: CNII-XII intact, moves all extremities Plan Activity: advance as tolerated Diet: other (cardiac diet) Additional Instructions: Next INR check on 05/12/2019. Goal INR 2-3. If you notice any bleeding stop Coumadin and contact M.D. f/u with site inspector, Dr Alba Bunch per scheduled [facility] [Primary Care Provider] - 3-5 Days JEAN RODRIGUEZ MD [Staff Physician] - 7 Days Forms: Warfarin Discharge Instruction Prescriptions: Enoxaparin 80 mg SUB-Q Q12HR #8 syringe Furosemide [Lasix] 20 mg PO QDAY #30 tablet Metoprolol [Lopressor TAB] 50 mg PO BID #60 tablet Prednisone [predniSONE 10 mg (6-Day Pack, 21 Tabs)] 10 mg PO .TAPER #1 tab.ds.pk
[2019-05-11] MEDS: METOPROLOL TARTRATE 50 MG TAB PO SCH (15:43)
== END 2019-05-11 15:50 | disposition home or self-care (01) | DRG 286 ==
LOC: ED 19:56 → 4A 21:50
PROVIDERS: ADMIT Internal Medicine; ATTEND Internal Medicine
PROC: 5A09357 Assistance with Respiratory Ventilation, Less than 24 Consecutive Hours, Continuous Positive Airway Pressure (ICD-10-PCS; 2019-05-05)
PROC: 3E0234Z Introduction of Serum, Toxoid and Vaccine into Muscle, Percutaneous Approach (ICD-10-PCS; 2019-05-07)
PROC: 4A023N7 Measurement of Cardiac Sampling and Pressure, Left Heart, Percutaneous Approach (ICD-10-PCS; principal; 2019-05-10)
PROC: B2111ZZ Fluoroscopy of Multiple Coronary Arteries using Low Osmolar Contrast (ICD-10-PCS; 2019-05-10)
PROC: B2151ZZ Fluoroscopy of Left Heart using Low Osmolar Contrast (ICD-10-PCS; 2019-05-10)
DX: I11.0 Hypertensive heart disease with heart failure (principal); J96.01 Acute respiratory failure with hypoxia; J44.1 Chronic obstructive pulmonary disease with (acute) exacerbation; J44.0 Chronic obstructive pulmonary disease with (acute) lower respiratory infection; I50.33 Acute on chronic diastolic (congestive) heart failure; D72.829 Elevated white blood cell count, unspecified; I73.9 Peripheral vascular disease, unspecified; D69.6 Thrombocytopenia, unspecified; I48.0 Paroxysmal atrial fibrillation; I16.0 Hypertensive urgency; J20.9 Acute bronchitis, unspecified; E87.6 Hypokalemia; E78.5 Hyperlipidemia, unspecified; Z82.49 Family history of ischemic heart disease and other diseases of the circulatory system; Z79.01 Long term (current) use of anticoagulants; Z88.6 Allergy status to analgesic agent; Z79.899 Other long term (current) drug therapy; Z23 Encounter for immunization
CPT/HCPCS: 36415; 71045; 80048; 81001; 82140; 82550; 82607; 82728; 82747; 82962; 83550; 83735; 83880; 84484; 85007; 85014; 85018; 85025; 85027; 85049; 85520; 85610; 85730; 87040; 90732; 93005; 93010; 93306; 93458; 94640; 94644; 94760; 96365; 96375; G0378; A9270-GY; C1894; J1644; J1650; J1940; J1956; J2250; J2920; J2930; J3010; J3475; J3480; J7030; J7040; J7050; Q9967